=== PATIENT | female | born 1940 | race Two or more races ===

== ENCOUNTER 2020-04-06 11:21 | Outpatient (CLI) | payer MEDICARE | END 2020-04-06 23:59 | disposition home or self-care (01) | LOC: CT 11:21 | PROVIDERS: ATTEND Internal Medicine | DX: R41.3 Other amnesia (principal) | CPT/HCPCS: 70450-TC ==

== ENCOUNTER 2020-05-05 01:50 | Outpatient (CLI) | payer MEDICARE | END 2020-05-05 23:59 | disposition home or self-care (01) | LOC: MSC 01:50 | PROVIDERS: ATTEND Internal Medicine | DX: R05 Cough (principal); I10 Essential (primary) hypertension; R41.89 Other symptoms and signs involving cognitive functions and awareness; H91.90 Unspecified hearing loss, unspecified ear; R53.83 Other fatigue; R26.9 Unspecified abnormalities of gait and mobility | CPT/HCPCS: 71045; G0463 ==

== ENCOUNTER 2020-06-02 13:15 | Outpatient (CLI) | payer MEDICARE ==
[2020-06-02 16:23] LABS: CALCIUM, SERUM 8.8 mg/dL (8.5-10.1); CARBON DIOXIDE 28 mmol/L (21-32); CHLORIDE 100 mmol/L (98-107); CREATININE 0.8 mg/dL (0.6-1.3); GLUCOSE 147 mg/dL (74-106); POTASSIUM 4.5 mmol/L (3.5-5.1); SODIUM SERUM 136 mmol/L (136-145); UREA NITROGEN, BLOOD 10 mg/dL (7-18)
[2020-06-02 16:24] LABS: ALANINE AMINOTRANSFERASE 19 U/L (12-78); ALBUMIN 3.7 g/dL (3.4-5.0); ALKALINE PHOSPHATASE 78 U/L (46-116); ASPARTATE AMINOTRANSFERASE 16 U/L (15-37); BILIRUBIN,TOTAL 0.6 mg/dL (0.2-1.0); TOTAL PROTEIN, SERUM 7.7 g/dL (6.4-8.2)
== END 2020-06-02 23:59 | disposition home or self-care (01) ==
LOC: MSC 13:15
PROVIDERS: ATTEND Internal Medicine
DX: R05 Cough (principal); F41.9 Anxiety disorder, unspecified; I10 Essential (primary) hypertension; R41.89 Other symptoms and signs involving cognitive functions and awareness; H91.90 Unspecified hearing loss, unspecified ear; R53.83 Other fatigue; R26.9 Unspecified abnormalities of gait and mobility
CPT/HCPCS: 36415; 80053; G0463

== ENCOUNTER 2020-10-27 13:46 | Outpatient (CLI) | payer MEDICARE | END 2020-10-27 23:59 | disposition home or self-care (01) | LOC: MSC 13:46 | PROVIDERS: ATTEND Internal Medicine | DX: R05 Cough (principal); R41.89 Other symptoms and signs involving cognitive functions and awareness; F41.9 Anxiety disorder, unspecified; I10 Essential (primary) hypertension; H91.90 Unspecified hearing loss, unspecified ear; R53.83 Other fatigue; R26.9 Unspecified abnormalities of gait and mobility; Z79.899 Other long term (current) drug therapy | CPT/HCPCS: 71046; G0463 ==

== ENCOUNTER 2020-11-10 11:18 | Outpatient (CLI) | payer MEDICARE ==
[2020-11-10 13:40] LABS: CHOLESTEROL 261 mg/dL (<200); HDL CHOLESTEROL 113 mg/dL (40-60); LDL 138 mg/dL (0-99); TRIGLYCERIDES 40 mg/dL (30-150)
== END 2020-11-10 23:59 | disposition home or self-care (01) ==
LOC: LAB 11:18
PROVIDERS: ATTEND Internal Medicine Interventional Cardiology
DX: I10 Essential (primary) hypertension (principal)
CPT/HCPCS: 36415; 80061-TC

== ENCOUNTER 2020-11-10 15:31 | Outpatient (CLI) | payer MEDICARE | END 2020-11-10 23:59 | disposition home or self-care (01) | LOC: MSC 15:31 | PROVIDERS: ATTEND Internal Medicine | DX: R05 Cough (principal); R41.89 Other symptoms and signs involving cognitive functions and awareness; F41.9 Anxiety disorder, unspecified; Z79.899 Other long term (current) drug therapy; H91.90 Unspecified hearing loss, unspecified ear; R26.9 Unspecified abnormalities of gait and mobility; R53.83 Other fatigue; I10 Essential (primary) hypertension; Z90.49 Acquired absence of other specified parts of digestive tract; Z74.09 Other reduced mobility ==

== ENCOUNTER 2020-11-29 10:47 | Emergency (ER) | payer MEDICARE ==
[~2020-11-29] VITALS: Ht 160 cm; Wt 63.5 kg
--- NOTE | 2020-11-29 11:00 | NUR ---
R LOWER EXTREMITY SWELLING SINCE LAST NIGHT. PATIENT IN BED, KEPT COMFORTABLE.
[2020-11-29] MEDS ORDERED: MIRT15TA7 PO (11:23)
[2020-11-29] MEDS ORDERED: ATOR10TA PO (11:23)
[2020-11-29] MEDS ORDERED: VALS160T29 PO (11:23)
[2020-11-29] MEDS ORDERED: ASPI-1420 PO (11:23)
[2020-11-29] MEDS ORDERED: CITA10TA9 PO (11:23)
[2020-11-29] MEDS ORDERED: MONT10TA22 PO (11:23)
[2020-11-29] MEDS ORDERED: PANT40TA49 PO (11:23)
[2020-11-29 11:24] LABS: BASOPHILS # (AUTO) 0.1 /CMM (0.0-0.2); BASOPHILS % (AUTO) 1.3 % (0.0-2.0); EOSINOPHILS % (AUTO) 5.5 % (0.0-6.0); HEMATOCRIT 35 % (33-45); HEMOGLOBIN 12.1 g/dL (11.5-14.8); LYMPHOCYTES # (AUTO) 1.5 /CMM (0.8-4.8); LYMPHOCYTES % (AUTO) 30.3 % (20.0-44.0); MEAN CORPUSCULAR HGB CONC 35 g/dl (31.0-36.0); MEAN CORPUSCULAR VOLUME 101 fL (82-100); MONOCYTES # (AUTO) 0.4 /CMM (0.1-1.30); MONOCYTES % (AUTO) 8.2 % (2.0-12.0); NEUTROPHILS # (AUTO) 2.7 /CMM (1.8-8.9); NEUTROPHILS % (AUTO) 54.7 % (43.0-81.0); PLATELET COUNT (AUTO) 199 /CMM (150-450); RED BLOOD CELL COUNT(AUTO) 3.44 MIL/uL (4.0-5.2); WHITE BLOOD COUNT (AUTO) 4.9 K/uL (4.3-11.0)
[2020-11-29 12:05] LABS: CALCIUM, SERUM 8.6 mg/dL (8.5-10.1); POTASSIUM 4.3 mmol/L (3.5-5.1)
[2020-11-29 13:14] VITALS: BP 155/75
--- NOTE | 2020-11-29 13:14 | NUR ---
Patient in bed, resting, no distress noted. Patient discharged to home in stable condition. Written and verbal after care instructions given to daughter and verbalizes understanding of instruction.
== END 2020-11-29 13:15 | disposition home or self-care (01) ==
LOC: ER 10:47
DX: I82.812 Embolism and thrombosis of superficial veins of left lower extremity (principal); R22.41 Localized swelling, mass and lump, right lower limb; I10 Essential (primary) hypertension; F41.9 Anxiety disorder, unspecified; Z88.0 Allergy status to penicillin; Z79.899 Other long term (current) drug therapy; Z79.82 Long term (current) use of aspirin; M79.661 Pain in right lower leg
CPT/HCPCS: 36415; 80048-TC; 85025-TC; 85730-TC; 93970-TC

== ENCOUNTER 2020-12-15 14:00 | Outpatient (CLI) | payer MEDICARE ==
[~2020-12-15 14:00] MED LIST: ASPI-1420 PO; ATOR10TA PO; CITA10TA9 PO; MIRT15TA7 PO; MONT10TA22 PO; PANT40TA49 PO; VALS160T29 PO
== END 2020-12-15 23:59 | disposition home or self-care (01) ==
LOC: MSC 14:00
PROVIDERS: ATTEND Internal Medicine
DX: R41.89 Other symptoms and signs involving cognitive functions and awareness (principal); R05 Cough; F41.9 Anxiety disorder, unspecified; R53.83 Other fatigue; I10 Essential (primary) hypertension; H91.90 Unspecified hearing loss, unspecified ear; R26.9 Unspecified abnormalities of gait and mobility; Z88.8 Allergy status to other drugs, medicaments and biological substances; Z79.899 Other long term (current) drug therapy

== ENCOUNTER → 2020-12-20 | Outpatient (CLI) | payer MEDICARE | END | disposition home or self-care (01) | LOC: CT 11:09 | PROVIDERS: ATTEND Internal Medicine | DX: R05 Cough (principal) | CPT/HCPCS: 71250-TC ==

== ENCOUNTER 2020-12-29 10:24 | Outpatient (CLI) | payer MEDICARE | END 2020-12-29 23:59 | disposition home or self-care (01) | LOC: RAD 10:24 | PROVIDERS: ATTEND Internal Medicine Pulmonary Disease | DX: J32.9 Chronic sinusitis, unspecified (principal) | CPT/HCPCS: 70220-TC ==

== ENCOUNTER 2021-01-04 12:00 | Outpatient (CLI) | payer MEDICARE | END 2021-01-04 23:59 | disposition home or self-care (01) | LOC: MSC 12:00 | PROVIDERS: ATTEND Internal Medicine | DX: R42 Dizziness and giddiness (principal); R41.89 Other symptoms and signs involving cognitive functions and awareness; R05 Cough; F41.9 Anxiety disorder, unspecified; I10 Essential (primary) hypertension; H91.90 Unspecified hearing loss, unspecified ear; R53.83 Other fatigue; R26.9 Unspecified abnormalities of gait and mobility; Z79.899 Other long term (current) drug therapy ==

== ENCOUNTER 2021-01-25 03:30 | Outpatient (CLI) | payer MEDICARE | END 2021-01-25 23:59 | disposition home or self-care (01) | LOC: MSC 03:30 | PROVIDERS: ATTEND Internal Medicine | DX: I95.9 Hypotension, unspecified (principal); R19.7 Diarrhea, unspecified; R39.15 Urgency of urination; R41.89 Other symptoms and signs involving cognitive functions and awareness; R05 Cough; I10 Essential (primary) hypertension; H91.90 Unspecified hearing loss, unspecified ear; R53.83 Other fatigue; R26.9 Unspecified abnormalities of gait and mobility; Z79.899 Other long term (current) drug therapy ==

== ENCOUNTER 2021-01-26 10:57 | Outpatient (CLI) | payer MEDICARE ==
[2021-01-26 12:15] LABS: BILIRUBIN,URINE NEGATIVE (NEGATIVE); COLOR,URINE YELLOW (YELLOW); LEUKOCYTE ESTERASE ,URINE NEGATIVE (NEGATIVE); NITRITE, URINE NEGATIVE (NEGATIVE); PROTEIN,URINE NEGATIVE (NEGATIVE); UGLUCOSE NEGATIVE (NEGATIVE); UROBILINOGEN,URINE 0.2 EU/dL (0.2)
[2021-01-26 12:16] LABS: BASOPHILS % (AUTO) 0.4 % (0.0-2.0); EOSINOPHILS % (AUTO) 3.7 % (0.0-6.0); HEMATOCRIT 37 % (33-45); HEMOGLOBIN 12.5 g/dL (11.5-14.8); LYMPHOCYTES % (AUTO) 16.5 % (20.0-44.0); MEAN CORPUSCULAR HGB CONC 34 g/dl (31.0-36.0); MEAN CORPUSCULAR VOLUME 103 fL (82-100); MONOCYTES # (AUTO) 0.5 /CMM (0.1-1.30); MONOCYTES % (AUTO) 8.3 % (2.0-12.0); NEUTROPHILS # (AUTO) 4.5 /CMM (1.8-8.9); NEUTROPHILS % (AUTO) 71.1 % (43.0-81.0); PLATELET COUNT (AUTO) 234 /CMM (150-450); RED BLOOD CELL COUNT(AUTO) 3.56 MIL/uL (4.0-5.2); WHITE BLOOD COUNT (AUTO) 6.3 K/uL (4.3-11.0)
[2021-01-26 12:24] LABS: CREATININE, URINE 119.8 MG/DL (30.0-125.0); URINE TOTAL PROTEIN 17.6 mg/dL (0-11.9)
[2021-01-26 12:26] LABS: C-REACTIVE PROTEIN < 0.2 mg/dL (0.0-0.9)
[2021-01-26 12:27] LABS: BACTERIA,URINE Rare /HPF (None Seen); SQUAMOUS EPITHELIAL CELL,UR Rare /HPF (None Seen); WBC,URINE 0-2 /HPF (0-3)
[2021-01-26 12:30] LABS: ALANINE AMINOTRANSFERASE 26 U/L (12-78); ALBUMIN 3.6 g/dL (3.4-5.0); ALKALINE PHOSPHATASE 76 U/L (46-116); ASPARTATE AMINOTRANSFERASE 15 U/L (15-37); BILIRUBIN,TOTAL 0.7 mg/dL (0.2-1.0); CARBON DIOXIDE 28 mmol/L (21-32); CHLORIDE 101 mmol/L (98-107); CREATININE 0.9 mg/dL (0.6-1.3); GLUCOSE 108 mg/dL (74-106); MAGNESIUM 2.2 mg/dL (1.8-2.4); PHOSPHORUS 3.9 mg/dL (2.5-4.9); POTASSIUM 4.4 mmol/L (3.5-5.1); SODIUM SERUM 136 mmol/L (136-145); TOTAL PROTEIN, SERUM 7.8 g/dL (6.4-8.2); UREA NITROGEN, BLOOD 14 mg/dL (7-18)
== END 2021-01-26 23:59 | disposition home or self-care (01) ==
LOC: LAB 10:57
PROVIDERS: ATTEND Internal Medicine
DX: I95.9 Hypotension, unspecified (principal); R53.83 Other fatigue; R30.0 Dysuria; R19.7 Diarrhea, unspecified; R42 Dizziness and giddiness
CPT/HCPCS: 36415; 80053-TC; 81001; 82570-TC; 83735-TC; 84100-TC; 84155-TC; 85025-TC; 85652-TC; 86140-TC; 87086-TC

== ENCOUNTER 2021-02-01 09:54 | Outpatient (CLI) | payer MEDICARE, OTHER ==
[~2021-02-01 09:54] MED LIST changes: -MIRT-90 PO; +MIRT15TA7 PO
== END 2021-02-01 23:59 | disposition home or self-care (01) ==
LOC: US 09:54
PROVIDERS: ATTEND Internal Medicine
DX: N32.89 Other specified disorders of bladder (principal); R14.0 Abdominal distension (gaseous)
CPT/HCPCS: 76770-TC

== ENCOUNTER → 2021-02-01 | Outpatient (CLI) | payer MEDICARE ==
[~2021-02-01] MED LIST changes: +MIRT-90 PO; -MIRT15TA7 PO
== END | disposition home or self-care (01) ==
LOC: MSC 14:00
PROVIDERS: ATTEND Internal Medicine
DX: I95.9 Hypotension, unspecified (principal); R19.7 Diarrhea, unspecified; R39.15 Urgency of urination; R30.0 Dysuria; R42 Dizziness and giddiness; R41.89 Other symptoms and signs involving cognitive functions and awareness; R05 Cough; F41.9 Anxiety disorder, unspecified; I10 Essential (primary) hypertension; H91.90 Unspecified hearing loss, unspecified ear; R53.83 Other fatigue; R26.9 Unspecified abnormalities of gait and mobility

== ENCOUNTER 2021-03-08 11:14 | Outpatient (CLI) | payer MEDICARE ==
[~2021-03-08 11:14] MED LIST changes: +MIRT-90 PO; -MIRT15TA7 PO
[2021-03-08 13:00] LABS: BASOPHILS % (AUTO) 0.5 % (0.0-2.0); EOSINOPHILS % (AUTO) 4.7 % (0.0-6.0); HEMATOCRIT 35 % (33-45); HEMOGLOBIN 12.2 g/dL (11.5-14.8); LYMPHOCYTES # (AUTO) 1.6 K/uL (0.8-4.8); LYMPHOCYTES % (AUTO) 27.5 % (20.0-44.0); MEAN CORPUSCULAR HGB CONC 35 g/dl (31.0-36.0); MEAN CORPUSCULAR VOLUME 102 fL (82-100); MONOCYTES # (AUTO) 0.5 K/uL (0.1-1.30); MONOCYTES % (AUTO) 8.2 % (2.0-12.0); NEUTROPHILS # (AUTO) 3.4 K/uL (1.8-8.9); NEUTROPHILS % (AUTO) 59.1 % (43.0-81.0); PLATELET COUNT (AUTO) 229 K/uL (150-450); RED BLOOD CELL COUNT(AUTO) 3.42 MIL/uL (4.0-5.2); WHITE BLOOD COUNT (AUTO) 5.7 K/uL (4.3-11.0)
[2021-03-08 13:09] LABS: BILIRUBIN,URINE NEGATIVE (NEGATIVE); COLOR,URINE YELLOW (YELLOW); LEUKOCYTE ESTERASE ,URINE NEGATIVE (NEGATIVE); NITRITE, URINE NEGATIVE (NEGATIVE); PH,URINE 7.5 (5.0-8.0); PROTEIN,URINE NEGATIVE (NEGATIVE); UGLUCOSE NEGATIVE (NEGATIVE); UROBILINOGEN,URINE 0.2 EU/dL (0.2)
[2021-03-08 13:43] LABS: CHOLESTEROL 165 mg/dL (<200); FREE T4 (FREE THYROXINE) 1.17 ng/dL (0.76-1.46); HDL CHOLESTEROL 76 mg/dL (40-60); LDL 75 mg/dL (0-99); THYROID STIMULATING HORMONE 1.037 uIU/mL (0.358-3.74); TRIGLYCERIDES 55 mg/dL (30-150)
[2021-03-08 13:56] LABS: C-REACTIVE PROTEIN < 0.2 mg/dL (0.0-0.9)
[2021-03-08 14:39] LABS: ALANINE AMINOTRANSFERASE 22 U/L (12-78); ALBUMIN 3.6 g/dL (3.4-5.0); ASPARTATE AMINOTRANSFERASE 16 U/L (15-37); BILIRUBIN,TOTAL 0.7 mg/dL (0.2-1.0); CALCIUM, SERUM 8.9 mg/dL (8.5-10.1); CARBON DIOXIDE 31 mmol/L (21-32); CHLORIDE 98 mmol/L (98-107); CREATININE 0.9 mg/dL (0.6-1.3); GLUCOSE 99 mg/dL (74-106); MAGNESIUM 2.3 mg/dL (1.8-2.4); POTASSIUM 4.9 mmol/L (3.5-5.1); SODIUM SERUM 133 mmol/L (136-145); TOTAL PROTEIN, SERUM 7.8 g/dL (6.4-8.2); UREA NITROGEN, BLOOD 10 mg/dL (7-18)
[2021-03-08 17:59] LABS: ALKALINE PHOSPHATASE 59 U/L (46-116)
== END 2021-03-08 23:59 | disposition home or self-care (01) ==
LOC: MSC 11:14
PROVIDERS: ATTEND Internal Medicine
DX: L98.9 Disorder of the skin and subcutaneous tissue, unspecified (principal); I95.9 Hypotension, unspecified; R19.7 Diarrhea, unspecified; R39.15 Urgency of urination; R30.0 Dysuria; R42 Dizziness and giddiness; R41.89 Other symptoms and signs involving cognitive functions and awareness; R05 Cough; F41.9 Anxiety disorder, unspecified; I10 Essential (primary) hypertension; H91.90 Unspecified hearing loss, unspecified ear; R53.83 Other fatigue; R26.9 Unspecified abnormalities of gait and mobility
CPT/HCPCS: 36415; 80053; 80061; 81003; 82306; 82607; 82746; 83036; 83735; 84100; 84439; 84443; 85025; 85652; 86003; 86140; G0463

== ENCOUNTER → 2021-04-03 | Outpatient (CLI) | payer MEDICARE, OTHER | END | disposition home or self-care (01) | LOC: MSC 15:00 | PROVIDERS: ATTEND Internal Medicine | DX: G47.00 Insomnia, unspecified (principal); R41.89 Other symptoms and signs involving cognitive functions and awareness; F41.9 Anxiety disorder, unspecified; J30.9 Allergic rhinitis, unspecified; R09.82 Postnasal drip; I95.9 Hypotension, unspecified; R19.7 Diarrhea, unspecified; R39.15 Urgency of urination; R30.0 Dysuria; R42 Dizziness and giddiness; I10 Essential (primary) hypertension; H91.90 Unspecified hearing loss, unspecified ear; R26.9 Unspecified abnormalities of gait and mobility; Z91.018 Allergy to other foods; Z79.82 Long term (current) use of aspirin; Z79.899 Other long term (current) drug therapy ==

== ENCOUNTER 2021-04-11 11:23 | Outpatient (CLI) | payer MEDICARE ==
[2021-04-11 12:02] LABS: BILIRUBIN,URINE NEGATIVE (NEGATIVE); LEUKOCYTE ESTERASE ,URINE MODERATE (NEGATIVE); NITRITE, URINE NEGATIVE (NEGATIVE); PH,URINE 7.5 (5.0-8.0); PROTEIN,URINE NEGATIVE (NEGATIVE); UGLUCOSE NEGATIVE (NEGATIVE); UROBILINOGEN,URINE 0.2 EU/dL (0.2)
[2021-04-11 12:05] LABS: COLOR,URINE STRAW (YELLOW)
[2021-04-11 12:13] LABS: BACTERIA,URINE 3+ /HPF (None Seen); SQUAMOUS EPITHELIAL CELL,UR Few /HPF (None Seen); WBC,URINE TOO NUMEROUS TO COUN /HPF (0-3)
== END 2021-04-11 23:59 | disposition home or self-care (01) ==
LOC: LAB 11:23
PROVIDERS: ATTEND Internal Medicine
DX: N39.0 Urinary tract infection, site not specified (principal)
CPT/HCPCS: 81001; 87086-TC

== ENCOUNTER → 2021-04-11 | Outpatient (CLI) | payer MEDICARE | END | disposition home or self-care (01) | LOC: MSC 14:15 | PROVIDERS: ATTEND Internal Medicine | DX: N39.0 Urinary tract infection, site not specified (principal); R39.15 Urgency of urination; R30.0 Dysuria; G47.00 Insomnia, unspecified; J30.9 Allergic rhinitis, unspecified; R09.82 Postnasal drip; I95.9 Hypotension, unspecified; R19.7 Diarrhea, unspecified; R42 Dizziness and giddiness; R53.83 Other fatigue; R41.89 Other symptoms and signs involving cognitive functions and awareness; F41.9 Anxiety disorder, unspecified; I10 Essential (primary) hypertension; H91.90 Unspecified hearing loss, unspecified ear; R26.9 Unspecified abnormalities of gait and mobility; Z79.899 Other long term (current) drug therapy ==

== ENCOUNTER → 2021-05-22 | Outpatient (CLI) | payer MEDICARE | END | disposition home or self-care (01) | LOC: MSC 09:15 | PROVIDERS: ATTEND Internal Medicine | DX: R41.89 Other symptoms and signs involving cognitive functions and awareness (principal); R26.9 Unspecified abnormalities of gait and mobility; N39.0 Urinary tract infection, site not specified; G47.00 Insomnia, unspecified; J30.9 Allergic rhinitis, unspecified; R09.82 Postnasal drip; I95.9 Hypotension, unspecified; R19.7 Diarrhea, unspecified; R30.0 Dysuria; R39.15 Urgency of urination; R42 Dizziness and giddiness; R53.83 Other fatigue; F41.9 Anxiety disorder, unspecified; I10 Essential (primary) hypertension; H91.90 Unspecified hearing loss, unspecified ear; Z79.899 Other long term (current) drug therapy ==

== ENCOUNTER → 2021-05-23 | Outpatient (CLI) | payer MEDICARE | END | disposition home or self-care (01) | LOC: MSC 14:30 | PROVIDERS: ATTEND Internal Medicine | DX: R41.89 Other symptoms and signs involving cognitive functions and awareness (principal); G47.00 Insomnia, unspecified; J30.9 Allergic rhinitis, unspecified; R09.82 Postnasal drip; I95.9 Hypotension, unspecified; R19.7 Diarrhea, unspecified; R39.15 Urgency of urination; R30.0 Dysuria; R42 Dizziness and giddiness; R53.83 Other fatigue; F41.9 Anxiety disorder, unspecified; I10 Essential (primary) hypertension; H91.90 Unspecified hearing loss, unspecified ear; R26.9 Unspecified abnormalities of gait and mobility; Z79.899 Other long term (current) drug therapy ==

== ENCOUNTER 2021-05-25 10:59 | Outpatient (CLI) | payer MEDICARE | END 2021-05-25 23:59 | disposition home or self-care (01) | LOC: CT 10:59 | PROVIDERS: ATTEND Internal Medicine | DX: I67.82 Cerebral ischemia (principal); I65.23 Occlusion and stenosis of bilateral carotid arteries | CPT/HCPCS: 70450-TC ==

== ENCOUNTER 2021-05-31 10:58 | Outpatient (CLI) | payer MEDICARE ==
[2021-05-31 12:13] LABS: BASOPHILS % (AUTO) 0.6 % (0.0-2.0); EOSINOPHILS % (AUTO) 2.3 % (0.0-6.0); HEMATOCRIT 35 % (33-45); HEMOGLOBIN 11.9 g/dL (11.5-14.8); LYMPHOCYTES # (AUTO) 1.1 K/uL (0.8-4.8); MEAN CORPUSCULAR HGB CONC 34 g/dl (31.0-36.0); MEAN CORPUSCULAR VOLUME 104 fL (82-100); MONOCYTES # (AUTO) 0.4 K/uL (0.1-1.30); MONOCYTES % (AUTO) 6.7 % (2.0-12.0); NEUTROPHILS % (AUTO) 70.4 % (43.0-81.0); PLATELET COUNT (AUTO) 272 K/uL (150-450); RED BLOOD CELL COUNT(AUTO) 3.38 MIL/uL (4.0-5.2); WHITE BLOOD COUNT (AUTO) 5.7 K/uL (4.3-11.0)
[2021-05-31 13:33] LABS: ALBUMIN 3.6 g/dL (3.4-5.0); BILIRUBIN,TOTAL 0.5 mg/dL (0.2-1.0); CALCIUM, SERUM 8.7 mg/dL (8.5-10.1); CREATININE 0.8 mg/dL (0.6-1.3); MAGNESIUM 2.5 mg/dL (1.8-2.4); PHOSPHORUS 4.1 mg/dL (2.5-4.9); POTASSIUM 4.8 mmol/L (3.5-5.1); TOTAL PROTEIN, SERUM 7.7 g/dL (6.4-8.2)
== END 2021-05-31 23:59 | disposition home or self-care (01) ==
LOC: MSC 10:58
PROVIDERS: ATTEND Internal Medicine
DX: R41.89 Other symptoms and signs involving cognitive functions and awareness (principal); R09.3 Abnormal sputum; R05.9 Cough, unspecified; E87.5 Hyperkalemia; G47.00 Insomnia, unspecified; J30.9 Allergic rhinitis, unspecified; I95.9 Hypotension, unspecified; R19.7 Diarrhea, unspecified; R39.15 Urgency of urination; R30.0 Dysuria; R42 Dizziness and giddiness; R53.83 Other fatigue; F41.9 Anxiety disorder, unspecified; I10 Essential (primary) hypertension; H91.90 Unspecified hearing loss, unspecified ear; R26.9 Unspecified abnormalities of gait and mobility; Z79.899 Other long term (current) drug therapy
CPT/HCPCS: 36415; 71045; 80053; 80061; 82607; 83036; 83735; 84100; 85025; G0463

== ENCOUNTER → 2021-06-05 | Outpatient (CLI) | payer MEDICARE | END | disposition home or self-care (01) | LOC: MSC 14:00 | PROVIDERS: ATTEND Internal Medicine | DX: E87.1 Hypo-osmolality and hyponatremia (principal); E78.5 Hyperlipidemia, unspecified; R41.89 Other symptoms and signs involving cognitive functions and awareness; J30.9 Allergic rhinitis, unspecified; R09.82 Postnasal drip; G47.00 Insomnia, unspecified; I95.9 Hypotension, unspecified; R19.7 Diarrhea, unspecified; R39.15 Urgency of urination; R30.0 Dysuria; R42 Dizziness and giddiness; R53.83 Other fatigue; F41.9 Anxiety disorder, unspecified; I10 Essential (primary) hypertension; H91.90 Unspecified hearing loss, unspecified ear; R26.9 Unspecified abnormalities of gait and mobility; Z79.899 Other long term (current) drug therapy ==

== ENCOUNTER 2021-07-10 10:01 | Outpatient (CLI) | payer MEDICARE | END 2021-07-10 23:59 | disposition home or self-care (01) | LOC: MSC 10:01 | PROVIDERS: ATTEND Internal Medicine | DX: K59.00 Constipation, unspecified (principal); R19.7 Diarrhea, unspecified; I10 Essential (primary) hypertension; E87.1 Hypo-osmolality and hyponatremia; E78.5 Hyperlipidemia, unspecified; R41.89 Other symptoms and signs involving cognitive functions and awareness; J30.9 Allergic rhinitis, unspecified; R09.82 Postnasal drip; Z87.440 Personal history of urinary (tract) infections; G47.00 Insomnia, unspecified; R39.15 Urgency of urination; R30.0 Dysuria; R42 Dizziness and giddiness; R53.83 Other fatigue; H91.90 Unspecified hearing loss, unspecified ear; R26.9 Unspecified abnormalities of gait and mobility; Z79.899 Other long term (current) drug therapy; F41.8 Other specified anxiety disorders ==

== ENCOUNTER → 2021-08-03 | Outpatient (CLI) | payer MEDICARE | END | disposition home or self-care (01) | LOC: MSC 14:00 | PROVIDERS: ATTEND Internal Medicine | DX: I10 Essential (primary) hypertension (principal); R41.0 Disorientation, unspecified; R19.7 Diarrhea, unspecified; E87.1 Hypo-osmolality and hyponatremia; E78.5 Hyperlipidemia, unspecified; R41.89 Other symptoms and signs involving cognitive functions and awareness; E87.5 Hyperkalemia; J30.9 Allergic rhinitis, unspecified; Z87.440 Personal history of urinary (tract) infections; G47.00 Insomnia, unspecified; R39.15 Urgency of urination; R42 Dizziness and giddiness; F41.9 Anxiety disorder, unspecified; H91.90 Unspecified hearing loss, unspecified ear; R53.83 Other fatigue; R26.9 Unspecified abnormalities of gait and mobility; Z79.82 Long term (current) use of aspirin; Z79.899 Other long term (current) drug therapy ==

== ENCOUNTER 2021-08-09 10:00 | Outpatient (CLI) | payer MEDICARE | END 2021-08-09 23:59 | disposition home or self-care (01) | LOC: MSC 10:00 | PROVIDERS: ATTEND Internal Medicine | DX: I10 Essential (primary) hypertension (principal); F41.9 Anxiety disorder, unspecified; R19.7 Diarrhea, unspecified; E78.5 Hyperlipidemia, unspecified; R41.89 Other symptoms and signs involving cognitive functions and awareness; E87.5 Hyperkalemia; J30.9 Allergic rhinitis, unspecified; Z87.440 Personal history of urinary (tract) infections; G47.00 Insomnia, unspecified; R39.15 Urgency of urination; R42 Dizziness and giddiness; H91.90 Unspecified hearing loss, unspecified ear; R53.83 Other fatigue; R26.9 Unspecified abnormalities of gait and mobility; Z79.82 Long term (current) use of aspirin; Z79.899 Other long term (current) drug therapy ==

== ENCOUNTER 2021-09-12 14:00 | Outpatient (CLI) | payer MEDICARE | END 2021-09-12 23:59 | disposition home or self-care (01) | LOC: MSC 14:00 | PROVIDERS: ATTEND Internal Medicine | DX: I95.9 Hypotension, unspecified (principal); I10 Essential (primary) hypertension; E78.5 Hyperlipidemia, unspecified; R41.89 Other symptoms and signs involving cognitive functions and awareness; E87.5 Hyperkalemia; J30.9 Allergic rhinitis, unspecified; Z87.440 Personal history of urinary (tract) infections; G47.00 Insomnia, unspecified; R39.15 Urgency of urination; R42 Dizziness and giddiness; F41.9 Anxiety disorder, unspecified; H91.90 Unspecified hearing loss, unspecified ear; R53.83 Other fatigue; R26.9 Unspecified abnormalities of gait and mobility; Z79.82 Long term (current) use of aspirin; Z79.899 Other long term (current) drug therapy ==

== ENCOUNTER 2021-09-20 11:00 | Outpatient (CLI) | payer MEDICARE | END 2021-09-20 23:59 | disposition home or self-care (01) | LOC: MSC 11:00 | PROVIDERS: ATTEND Internal Medicine | DX: I10 Essential (primary) hypertension (principal); R21 Rash and other nonspecific skin eruption; H93.19 Tinnitus, unspecified ear; E78.5 Hyperlipidemia, unspecified; R41.89 Other symptoms and signs involving cognitive functions and awareness; G47.00 Insomnia, unspecified; R19.7 Diarrhea, unspecified; R39.15 Urgency of urination; R42 Dizziness and giddiness; F41.9 Anxiety disorder, unspecified; H91.90 Unspecified hearing loss, unspecified ear; R53.83 Other fatigue; R26.9 Unspecified abnormalities of gait and mobility; Z79.899 Other long term (current) drug therapy ==

== ENCOUNTER 2021-09-25 11:45 | Outpatient (CLI) | payer MEDICARE | END 2021-09-25 23:59 | disposition home or self-care (01) | LOC: MSC 11:45 | PROVIDERS: ATTEND Internal Medicine | DX: I10 Essential (primary) hypertension (principal); H93.19 Tinnitus, unspecified ear; E78.5 Hyperlipidemia, unspecified; R41.89 Other symptoms and signs involving cognitive functions and awareness; G47.00 Insomnia, unspecified; R19.7 Diarrhea, unspecified; R39.15 Urgency of urination; R42 Dizziness and giddiness; F41.9 Anxiety disorder, unspecified; H91.90 Unspecified hearing loss, unspecified ear; R53.83 Other fatigue; R26.9 Unspecified abnormalities of gait and mobility; Z79.899 Other long term (current) drug therapy ==

== ENCOUNTER → 2021-11-02 | Outpatient (CLI) | payer MEDICARE | END | disposition home or self-care (01) | LOC: MSC 13:00 | PROVIDERS: ATTEND Internal Medicine | DX: R41.89 Other symptoms and signs involving cognitive functions and awareness (principal); I10 Essential (primary) hypertension; H93.19 Tinnitus, unspecified ear; E78.5 Hyperlipidemia, unspecified; G47.00 Insomnia, unspecified; R19.7 Diarrhea, unspecified; R39.15 Urgency of urination; R42 Dizziness and giddiness; F41.9 Anxiety disorder, unspecified; H91.90 Unspecified hearing loss, unspecified ear; R53.83 Other fatigue; R26.9 Unspecified abnormalities of gait and mobility; Z79.899 Other long term (current) drug therapy ==

== ENCOUNTER → 2021-11-22 | Outpatient (CLI) | payer MEDICARE, OTHER | END | disposition home or self-care (01) | LOC: MSC 14:30 | PROVIDERS: ATTEND Internal Medicine | DX: K02.9 Dental caries, unspecified (principal); R41.89 Other symptoms and signs involving cognitive functions and awareness; I10 Essential (primary) hypertension; H93.19 Tinnitus, unspecified ear; E78.5 Hyperlipidemia, unspecified; G47.00 Insomnia, unspecified; R19.7 Diarrhea, unspecified; R39.15 Urgency of urination; R42 Dizziness and giddiness; F41.9 Anxiety disorder, unspecified; H91.90 Unspecified hearing loss, unspecified ear; R53.83 Other fatigue; R26.9 Unspecified abnormalities of gait and mobility; Z79.899 Other long term (current) drug therapy ==

== ENCOUNTER 2021-11-27 14:29 | Outpatient (CLI) | payer MEDICARE, OTHER ==
[2021-11-27 14:52] LABS: BASOPHILS % (AUTO) 0.5 % (0.0-2.0); EOSINOPHILS % (AUTO) 4.3 % (0.0-6.0); HEMATOCRIT 38 % (33-45); HEMOGLOBIN 12.8 g/dL (11.5-14.8); LYMPHOCYTES # (AUTO) 1.3 K/uL (0.8-4.8); LYMPHOCYTES % (AUTO) 27.8 % (20.0-44.0); MEAN CORPUSCULAR HGB CONC 34 g/dl (31.0-36.0); MEAN CORPUSCULAR VOLUME 100 fL (82-100); MONOCYTES # (AUTO) 0.3 K/uL (0.1-1.30); MONOCYTES % (AUTO) 5.9 % (2.0-12.0); NEUTROPHILS # (AUTO) 2.9 K/uL (1.8-8.9); NEUTROPHILS % (AUTO) 61.5 % (43.0-81.0); PLATELET COUNT (AUTO) 258 K/uL (150-450); RED BLOOD CELL COUNT(AUTO) 3.83 MIL/uL (4.0-5.2); WHITE BLOOD COUNT (AUTO) 4.8 K/uL (4.3-11.0)
[2021-11-27 15:15] LABS: ALANINE AMINOTRANSFERASE 14 U/L (12-78); ALBUMIN 3.7 g/dL (3.4-5.0); ALKALINE PHOSPHATASE 84 U/L (46-116); ASPARTATE AMINOTRANSFERASE 9 U/L (15-37); BILIRUBIN,TOTAL 0.6 mg/dL (0.2-1.0); CALCIUM, SERUM 8.9 mg/dL (8.5-10.1); CARBON DIOXIDE 28 mmol/L (21-32); CHLORIDE 96 mmol/L (98-107); CREATININE 0.8 mg/dL (0.6-1.3); GLUCOSE 193 mg/dL (74-106); MAGNESIUM 2.4 mg/dL (1.8-2.4); PHOSPHORUS 4.2 mg/dL (2.5-4.9); POTASSIUM 4.2 mmol/L (3.5-5.1); SODIUM SERUM 132 mmol/L (136-145); TOTAL PROTEIN, SERUM 7.8 g/dL (6.4-8.2); UREA NITROGEN, BLOOD 11 mg/dL (7-18)
[2021-11-27 15:20] LABS: BILIRUBIN,URINE NEGATIVE (NEGATIVE); COLOR,URINE YELLOW (YELLOW); LEUKOCYTE ESTERASE ,URINE NEGATIVE (NEGATIVE); NITRITE, URINE NEGATIVE (NEGATIVE); PH,URINE 7.5 (5.0-8.0); PROTEIN,URINE NEGATIVE (NEGATIVE); UGLUCOSE NEGATIVE (NEGATIVE); UROBILINOGEN,URINE 0.2 EU/dL (0.2)
== END 2021-11-27 23:59 | disposition home or self-care (01) ==
LOC: LAB 14:29
PROVIDERS: ATTEND Internal Medicine
DX: Z01.818 Encounter for other preprocedural examination (principal)
CPT/HCPCS: 36415; 71045-TC; 80053-TC; 83735-TC; 84100-TC; 85025-TC; 85730-TC

== ENCOUNTER → 2021-11-27 | Outpatient (CLI) | payer MEDICARE, OTHER | END | disposition home or self-care (01) | LOC: MSC 16:30 | PROVIDERS: ATTEND Internal Medicine | DX: Z01.818 Encounter for other preprocedural examination (principal); K02.9 Dental caries, unspecified; R41.89 Other symptoms and signs involving cognitive functions and awareness; I10 Essential (primary) hypertension; H93.19 Tinnitus, unspecified ear; E78.5 Hyperlipidemia, unspecified; G47.00 Insomnia, unspecified; R19.7 Diarrhea, unspecified; R39.15 Urgency of urination; R42 Dizziness and giddiness; F41.9 Anxiety disorder, unspecified; H91.90 Unspecified hearing loss, unspecified ear; R53.83 Other fatigue; R26.9 Unspecified abnormalities of gait and mobility; Z79.899 Other long term (current) drug therapy ==

== ENCOUNTER → 2022-01-11 | Outpatient (CLI) | payer MEDICARE, OTHER | END | disposition home or self-care (01) | LOC: MSC 13:15 | PROVIDERS: ATTEND Internal Medicine | DX: R60.0 Localized edema (principal); Z87.440 Personal history of urinary (tract) infections; R41.89 Other symptoms and signs involving cognitive functions and awareness; I10 Essential (primary) hypertension; H93.19 Tinnitus, unspecified ear; E78.5 Hyperlipidemia, unspecified; G47.00 Insomnia, unspecified; R19.7 Diarrhea, unspecified; R39.15 Urgency of urination; R42 Dizziness and giddiness; F41.9 Anxiety disorder, unspecified; H91.90 Unspecified hearing loss, unspecified ear; R53.83 Other fatigue; R26.9 Unspecified abnormalities of gait and mobility; Z79.899 Other long term (current) drug therapy ==

== ENCOUNTER → 2022-01-16 | Outpatient (CLI) | payer MEDICARE, OTHER ==
[~2022-01-16] MED LIST changes: +BIOT5000 PO; +CETI-90 PO; +CRAN1CAP6 PO; +DOXA2TAB2 PO; +LACT1TAB25 PO
== END | disposition home or self-care (01) ==
LOC: MSC 13:30
PROVIDERS: ATTEND Internal Medicine
DX: U07.1 COVID-19 (principal); R60.0 Localized edema; Z87.440 Personal history of urinary (tract) infections; R41.9 Unspecified symptoms and signs involving cognitive functions and awareness; I10 Essential (primary) hypertension; H93.19 Tinnitus, unspecified ear; E78.5 Hyperlipidemia, unspecified; G47.00 Insomnia, unspecified; R19.7 Diarrhea, unspecified; R39.15 Urgency of urination; R42 Dizziness and giddiness; F41.9 Anxiety disorder, unspecified; H91.90 Unspecified hearing loss, unspecified ear; R53.83 Other fatigue; R26.9 Unspecified abnormalities of gait and mobility

== ENCOUNTER → 2022-01-23 | Outpatient (CLI) | payer MEDICARE, OTHER ==
[~2022-01-23] MED LIST changes: +AMLO-212 PO
== END | disposition home or self-care (01) ==
LOC: MSC 15:00
PROVIDERS: ATTEND Internal Medicine
DX: U07.1 COVID-19 (principal); R60.0 Localized edema; Z87.440 Personal history of urinary (tract) infections; R41.9 Unspecified symptoms and signs involving cognitive functions and awareness; I10 Essential (primary) hypertension; H93.19 Tinnitus, unspecified ear; E78.5 Hyperlipidemia, unspecified; G47.00 Insomnia, unspecified; R19.7 Diarrhea, unspecified; R39.15 Urgency of urination; R42 Dizziness and giddiness; F41.9 Anxiety disorder, unspecified; H91.90 Unspecified hearing loss, unspecified ear; R53.83 Other fatigue; R26.9 Unspecified abnormalities of gait and mobility

== ENCOUNTER 2022-01-24 11:52 | Inpatient (IN) | payer MEDICARE, OTHER ==
[~2022-01-24] VITALS: Ht 154.9 cm; Wt 63.5 kg
[~2022-01-24 11:52] MED LIST changes: -AMLO-212 PO; -BIOT5000 PO; -CETI-90 PO; -CRAN1CAP6 PO; -DOXA2TAB2 PO; -LACT1TAB25 PO
--- NOTE | 2022-01-24 11:57 | NUR ---
TO ER BED 10, BIB FAMILY SENT BY FOR LOW SODIUM 100MEQ/L, AAOX1, BREATHING EVEN AND NON LABORED, CONNECTED TO MONITOR, CAREGIVER AT BEDSIDE
--- NOTE | 2022-01-24 12:24 | NUR ---
ROLLED SEAT TRIMMER AT BEDSIDE FOR BLOOD DRAW
[2022-01-24] MEDS ORDERED: IV NS 0.9% 500 ML BAG IV ONE (12:30)
--- NOTE | 2022-01-24 12:47 | NUR ---
COVID SWAB DONE AND SENT TO LAB
[2022-01-24 12:52] LABS: SERUM AMMONIA 25 umol/L (11-32)
[2022-01-24] MEDS ORDERED: CRAN1CAP6 PO (12:55)
[2022-01-24] MEDS ORDERED: DOXA2TAB2 PO (12:55)
[2022-01-24] MEDS ORDERED: LACT1TAB25 PO (12:55)
[2022-01-24] MEDS ORDERED: BIOT5000 PO (12:55)
[2022-01-24] MEDS ORDERED: CETI-90 PO (12:55)
[2022-01-24 12:56] LABS: ALANINE AMINOTRANSFERASE 71 U/L (12-78); ALBUMIN 3.6 g/dL (3.4-5.0); ALKALINE PHOSPHATASE 97 U/L (46-116); ASPARTATE AMINOTRANSFERASE 35 U/L (15-37); BILIRUBIN,DIRECT 0.1 mg/dL (0.0-0.2); BILIRUBIN,TOTAL 0.7 mg/dL (0.2-1.0); CALCIUM, SERUM 8.5 mg/dL (8.5-10.1); CARBON DIOXIDE 27 mmol/L (21-32); CHLORIDE 82 mmol/L (98-107); CREATININE 0.8 mg/dL (0.6-1.3); GLUCOSE 143 mg/dL (74-106); LIPASE 218 U/L (73-393); POTASSIUM 3.9 mmol/L (3.5-5.1); TOTAL PROTEIN, SERUM 7.3 g/dL (6.4-8.2); UREA NITROGEN, BLOOD 7 mg/dL (7-18)
[2022-01-24 13:02] LABS: SODIUM SERUM 113 mmol/L (136-145)
[2022-01-24 13:21] LABS: BASOPHILS % (AUTO) 0.7 % (0.0-2.0); EOSINOPHILS % (AUTO) 1.6 % (0.0-6.0); HEMATOCRIT 35 % (33-45); HEMOGLOBIN 13.2 g/dL (11.5-14.8); LYMPHOCYTES % (AUTO) 16.7 % (20.0-44.0); MEAN CORPUSCULAR HGB CONC 37 g/dl (31.0-36.0); MEAN CORPUSCULAR VOLUME 91 fL (82-100); MONOCYTES # (AUTO) 0.6 K/uL (0.1-1.30); MONOCYTES % (AUTO) 10.2 % (2.0-12.0); NEUTROPHILS # (AUTO) 4.3 K/uL (1.8-8.9); NEUTROPHILS % (AUTO) 70.8 % (43.0-81.0); PLATELET COUNT (AUTO) 292 K/uL (150-450); RED BLOOD CELL COUNT(AUTO) 3.89 MIL/uL (4.0-5.2)
--- NOTE | 2022-01-24 13:42 | NUR ---
CALLED DR. MOONEY.
--- NOTE | 2022-01-24 13:51 | NUR ---
DR. MOONEY SPEAKING WITH DR. RUIZ.
[2022-01-24] MEDS ORDERED: Z GUARD REMEDY 4 OZ OINT TP PRN (15:00)
[2022-01-24] MEDS ORDERED: MAG HYDROX/AL HYDROX/SIMETH 30 ML UDC PO PRN (15:00)
[2022-01-24] MEDS ORDERED: ONDANSETRON HCL/PF 4 MG/2 ML VIAL IVP PRN (15:00)
[2022-01-24] MEDS ORDERED: MAGNESIUM HYDROXIDE 30 ML UDC PO PRN (15:00)
[2022-01-24] MEDS ORDERED: ACETAMINOPHEN 325 MG TABLET PO PRN (15:00)
--- NOTE | 2022-01-24 15:15 | NUR ---
PATIENT TESTED COVID POSITIVE, CAREGIVER AWARE
--- NOTE | 2022-01-24 15:55 | NUR ---
GOT BED 101
--- NOTE | 2022-01-24 16:03 | NUR ---
PER NURSE RADHAMES EWING, BED WILL BE READY AT 1630
--- NOTE | 2022-01-24 16:38 | NUR ---
REPORT GIVEN TO SOON RN FOR [place], TRANSFER IN 20MINS, NURSE IS STILL BUSY WITH OTHER PATIENT
--- NOTE | 2022-01-24 17:00 | NUR ---
DIETARY AID NOTE RECEIVED PATIENT ALERT CONFUSED SPEAKS SOME WORDS [facility],ON ROOM AIR O2:96% BED BOUND,IV SITE IS ON LEFT WRIST INTACT PATENT,DIAGNOSIS IS HYPONATREMIA NA 113,SAFETY MEASURE IMPLEMENT,BED IN LOW POSITON AND LOCKED,CONTINUE TO MONITOR.
--- NOTE | 2022-01-24 17:02 | NUR ---
TRANSFERRED TO BED 101 IN STABLE CONDITION
--- NOTE | 2022-01-24 17:02 | NUR ---
RN NOTE PATIENT IS COVID POSITIVE VERY ANXIOUS,CONTINUE TO MONITOR.
--- NOTE | 2022-01-24 18:00 | NUR ---
RN NOTE PATIENT REMOVED IV LINE,CLEAN THE SITE CONTINUE TO MONITOR.
[2022-01-24] MEDS: ACIDOPHILUS/BULGARICUS 1 EACH TAB.CHEW PO SCH (18:12)
[2022-01-24] MEDS: ASPIRIN EC 81 MG TABLET.DR PO SCH (18:12)
[2022-01-24] MEDS: VALSARTAN 80 MG TABLET PO SCH (18:13)
[2022-01-24 20:00] VITALS: BP_SYST 156; BP_DIAS 76; BP_DIAS 79
--- NOTE | 2022-01-24 20:00 | NUR ---
RN NOTE STARTED A NEW IV LINE ON RIGHT WRIST #22 G INTACT WITH GOOD BLOOD RETURN,PATIENT REMAINS CONFUSED KEPT HEAD OF THE BED ELEVATED ENDORSE NEXT COMING SHIFT FOR CONTINUATION OF CARE.
[2022-01-24] MEDS: IV NS 0.9% 1,000 ML IV PRN (20:08)
--- NOTE | 2022-01-24 20:30 | NUR ---
RN OPENING NOTES RECEIVED CARE OF PATIENT WHILE PATIENT IN BED, AGITATED, CONFUSED, UNABLE TO FOLLOW COMMANDS. PATIENT NOTED WITH B SOFT WRIST RESTRAINTS, NO SKIN OR CIRCULATORY COMPROMISE NOTED, WILL CONTINUOUSLY REMOVE AND ASSESS SKIN AROUND RESTRAINTS. PATIENT ON ROOM AIR, BILATERAL CHEST RISE AND FALL, NO SOB NOTED, 02 SAT 99%. PATIENT WITH TELE MONITOR SHOWING SB WITH 1ST DEGREE AV BLOCK AND HR OF 65, NO DISTRESS NOTED ON PATIENT. WITH IV ACCESS ON R WRIST #22, PATENT, RUNNING WITH IV NS AT 75ML/HR. SAFETY MEASURES IN PLACE ACCORDING TO HOSPITAL PROTOCOLS. WILL CONTINUE TO MONITOR.
[2022-01-24] MEDS: MIRTAZAPINE 15 MG TABLET PO SCH (22:26)
[2022-01-24] MEDS: DOXAZOSIN MESYLATE (1 MG) 1 MG TABLET PO SCH (22:27)
[2022-01-25] VITALS: BP 147/80
[2022-01-25 04:00] VITALS: BP 157/66
--- NOTE | 2022-01-25 06:12 | NUR ---
RN CLOSING NOTES WILL ENDORSE CARE OF PATIENT TO AM NURSE. PATIENT REMAINS IN BED, ANXIOUS, CONFUSED. ALL PATIENT NEEDS ANTICIPATED AND MET THROUGHOUT SHIFT. ALL DUE MEDS GIVEN. NO SIGNIFICANT FINDINGS UPON ALL NURSING ASSESSMENTS. SAFETY MEASURES FOLLOWED AND IMPLEMENTED PER HOSPITAL PROTOCOLS. WILL ENDORSE TO AM NURSE FOR [place].
--- NOTE | 2022-01-25 07:00 | NUR ---
RN NOTE RECEIVED PATIENT IN BED RESTING ANXIOUS,CONFUSED COVID POSITIVE,ON ROOM AIR O2:96% IV SITE IS ON RIGHT WRIST ON IV HYDRATION NS 75CC/HR,SOFT BILATERAL WRIST RESTRAIN IN PLACE WILL CHECK EVERY 15 MINS FOR SKIN BREAK DOWN AND CIRCULATION,SAFETY MEASURE IMPLEMENT,BED IN LOW POSITION AND LOCKED,HEAD OF THE BED ELEVATED CONTINUE TO MONITOR.
[2022-01-25 07:14] LABS: ALBUMIN 3.3 g/dL (3.4-5.0); BILIRUBIN,TOTAL 0.8 mg/dL (0.2-1.0); CALCIUM, SERUM 8.1 mg/dL (8.5-10.1); CREATININE 0.7 mg/dL (0.6-1.3); POTASSIUM 3.6 mmol/L (3.5-5.1); TOTAL PROTEIN, SERUM 6.8 g/dL (6.4-8.2)
[2022-01-25] MEDS: IV NS 0.9% 1,000 ML IV PRN ×2 (07:17→20:33)
[2022-01-25 07:42] LABS: BASOPHILS % (AUTO) 0.4 % (0.0-2.0); EOSINOPHILS % (AUTO) 1.9 % (0.0-6.0); HEMATOCRIT 36 % (33-45); LYMPHOCYTES # (AUTO) 0.8 K/uL (0.8-4.8); LYMPHOCYTES % (AUTO) 14.7 % (20.0-44.0); MEAN CORPUSCULAR HGB CONC 36 g/dl (31.0-36.0); MEAN CORPUSCULAR VOLUME 92 fL (82-100); MONOCYTES # (AUTO) 0.6 K/uL (0.1-1.30); MONOCYTES % (AUTO) 11.1 % (2.0-12.0); NEUTROPHILS # (AUTO) 3.8 K/uL (1.8-8.9); NEUTROPHILS % (AUTO) 71.9 % (43.0-81.0); PLATELET COUNT (AUTO) 327 K/uL (150-450); RED BLOOD CELL COUNT(AUTO) 3.86 MIL/uL (4.0-5.2); WHITE BLOOD COUNT (AUTO) 5.3 K/uL (4.3-11.0)
[2022-01-25 08:00] VITALS: BP 164/84
[2022-01-25] MEDS ORDERED: Medication Not On Formulary EA (Vit C/Vitamin E Acetate/Cranb (Cranberry Concentrate Sof PO SCH (09:00)
[2022-01-25] MEDS: cetrizine 10 MG TABLET PO SCH (09:48)
[2022-01-25] MEDS ORDERED: AMLODIPINE BESYLATE 5 MG TABLET PO ONE (10:00)
--- NOTE | 2022-01-25 11:00 | NUR ---
RN NOTE PATIENT IV INFILTRATED REMOVED CLEANED AND NOTIFIED CHARGE NURSE,CENTRIFUGAL SPINNER NOTIFIED,SHE ORDERED MIDLINE NOTED AND CARRIED OUT.
--- NOTE | 2022-01-25 11:45 | NUR ---
RN NOTE PATIENT MIDLINE DONE,SHE GOT MIDLINE INTACT PATENT CONTINUE IV HYDRATION.
[2022-01-25 12:00] VITALS: BP 134/62
[2022-01-25 16:00] VITALS: BP 152/91
[2022-01-25] MEDS: ASPIRIN EC 81 MG TABLET.DR PO SCH (17:09)
[2022-01-25] MEDS: VALSARTAN 80 MG TABLET PO SCH (17:09)
[2022-01-25] MEDS: ACIDOPHILUS/BULGARICUS 1 EACH TAB.CHEW PO SCH (17:09)
--- NOTE | 2022-01-25 18:37 | NUR ---
RN NOTE PATIENT REMAINS CONFUSED,OPEN EYES SPEAKS SOME WORD PERSIAN,ON ROOM AIR O2:98% IV SITE IS ON LEFT UPPER ARM MIDLINE INTACT PATENT ON IV HYDRATION NS 75CC./HR ALL DUE MEDS GIVEN MD ORDERED KEPT CLEAN AND DRY ALL THE TIME,KEPT COMFORTABLE,BILATERAL WRIST SOFT RESTRAIN IN PLACE CHECKED EVERY 15 MINS FOR SKIN BREAKDOWN AND CIRCULATION KEPT HEAD OF THE BED ELEVATED ENDORSE NEXT COMING SHIFT FOR CONTINUATION OF CARE.
--- NOTE | 2022-01-25 19:40 | NUR ---
RN NOTE RECEIVED PATIENT IN BED, AWAKE AND VERBALLY RESPONSIVE. NO SEIZURES NOTED AT THIS TIME BUT WILL CONTINUE TO MONITOR. NO DISTRESS NOTED. BREATHING EVEN AND UNLABORED. FOUND ON ROOM AIR. NO RESPIRATORY DISTRESS. ON TELE MONITORING. NO S/S OF DISCOMFORT. SKIN IS WARM AND DRY. LEFT UPPER ARM MIDLINE INFUSING NS AT 75 CC/HR. DRESSING INTACT. NO LEAKING NOTED. PATIENT IS INCONTINENT. ASSISTED WITH HYGIENE CARE. TURNED AND REPOSITIONED WITH GARDENER. PROVIDED WITH FLUIDS FOR HYDRATION. NOTED WITH BILATERAL SOFT WRIST RESTRAINTS. RELEASED TO ASSIST WITH UPPER EXTREMITY RANGE OF MOTION. REAPPLIED PATIENT IS TUGGING ON IV LINE. 2 FINGER SPACE OBSERVED, NO S/S OF SKIN BREAKDOWN AROUND WRIST. BED LOW, IN LOCKED POSITION. CALL LIGHT WITHIN REACH. WILL CONTINUE TO MONITOR.
[2022-01-25 20:00] VITALS: BP 129/72
[2022-01-25] MEDS: MIRTAZAPINE 15 MG TABLET PO SCH (21:46)
[2022-01-25] MEDS: DOXAZOSIN MESYLATE (1 MG) 1 MG TABLET PO SCH (21:46)
[2022-01-26] VITALS: BP 121/71
--- NOTE | 2022-01-26 | NUR ---
RN NOTE PATIENT WITH ORDER OF URINE CULTURES. SPA TECHNICIAN, MINNIE, AGREED FOR STRAIGHT CATHETERIZATION FOR URINE COLLECTION. STERILE PROCEDURE OBSERVED. COLLECTED ABOUT 700 CC OF YELLOW URINE. URINE CULTURE COLLECTED, PLACED IN BIOHAZARD BAG, PLACED INSIDE FRIDGE.
[2022-01-26 05:00] VITALS: BP 140/65
[2022-01-26] MEDS: IV NS 0.9% 1,000 ML IV PRN ×2 (06:01→19:39)
--- NOTE | 2022-01-26 06:32 | NUR ---
RN NOTE NO SIGNIFICANT CHANGES. PATIENT SLEPT WELL THROUGH THE NIGHT. NO S/S OF DISTRESS. KEPT CLEAN AND DRY. OFFERED FLUIDS FOR HYDRATION. OFFERED SNACKS. TURNED AND REPOSITIONED EVERY 2 HOURS. BILATERAL SOFT WRIST RESTRAINTS RELEASED EVERY HOUR TO ASSIST WITH RANGE OF MOTION. 2 FINGER SPACE OBSERVED AT ALL TIMES. BED LOW, IN LOCKED POSITION, CALL LIGHT WITHIN REACH.
--- NOTE | 2022-01-26 07:30 | NUR ---
LUIS EDUARDO RN NOTE RECEIVED PATIENT IN BED, EYES CLOSED, RESPONDS TO NAME AND TOUCH, AOX1, MURMURS TO SELF, ON ROOM AIR, O2 ST 99%, SR HR 76 ON MONITOR, NO SEIZURES, NO DISTRESS/ NO SIGNS OF PAIN OR DISCOMFORT, RESPIRATION UNLABORED, WITH LEFT UPPER ARM MIDLINE WITH NS AT 75 ML/HR INFUSING WELL, SITE CLEAR,CDI DRESSING. WITH BILAT SOFT WRIST RESTRAINT, PER NIGH SHIFT PATIENT PULLING ON IV LINES, RELEASED AND CHECKED FOR CIRCULATION/PULSE, THEN EVERY 2 HOURS. PROVIDED NUTRITION AND HYDRATION. BED LOW, IN LOCKED POSITION. CALL LIGHT WITHIN REACH. WILL CONTINUE TO MONITOR.
[2022-01-26 07:56] LABS: CALCIUM, SERUM 7.9 mg/dL (8.5-10.1); CREATININE 0.6 mg/dL (0.6-1.3); POTASSIUM 3.4 mmol/L (3.5-5.1)
[2022-01-26 08:00] VITALS: BP 141/77
[2022-01-26] MEDS: AMLODIPINE BESYLATE 5 MG TABLET PO SCH (09:12)
[2022-01-26] MEDS: cetrizine 10 MG TABLET PO SCH (09:12)
--- NOTE | 2022-01-26 09:30 | NUR ---
RN NOTES DUE MEDS GIVEN
[2022-01-26] MEDS ORDERED: POTASSIUM CHLORIDE 20 MEQ TAB.PRT.SR PO ONE (10:00)
[2022-01-26] MEDS: ENOXAPARIN SODIUM 40 MG/0.4 ML DISP.SYRIN SQ SCH (10:22)
[2022-01-26 12:00] VITALS: BP 170/74
[2022-01-26 16:00] VITALS: BP 137/80
--- NOTE | 2022-01-26 16:07 | NUR ---
RN NOTES PT'S DAUGHTER ESTRELLITA [DPOA] - [phone] - DOES NOT WANT ANY TUBE FEEDING. AND ANY KIND OF PROCEDURE SHOULD BE ADDRESSED FIRST TO HER. CHARGE NURSE SOON NOTIFIED WELL.
[2022-01-26 16:14] LABS: BILIRUBIN,URINE NEGATIVE (NEGATIVE); COLOR,URINE YELLOW (YELLOW); LEUKOCYTE ESTERASE ,URINE NEGATIVE (NEGATIVE); NITRITE, URINE NEGATIVE (NEGATIVE); PH,URINE 7.5 (5.0-8.0); PROTEIN,URINE NEGATIVE (NEGATIVE); UGLUCOSE NEGATIVE (NEGATIVE)
[2022-01-26 16:47] LABS: BACTERIA,URINE None seen /HPF (None Seen); RBC,URINE 0-2 /HPF (0-2); SQUAMOUS EPITHELIAL CELL,UR 0-2 /HPF (None Seen); WBC,URINE 0-2 /HPF (0-3)
[2022-01-26] MEDS: ASPIRIN EC 81 MG TABLET.DR PO SCH (17:37)
[2022-01-26] MEDS: ACIDOPHILUS/BULGARICUS 1 EACH TAB.CHEW PO SCH (17:37)
[2022-01-26] MEDS: VALSARTAN 80 MG TABLET PO SCH (17:38)
--- NOTE | 2022-01-26 18:39 | NUR ---
SUPERVISOR CORE DRILLING CLOSING NOTE PATIENT NOW RAPID NEGATIVE. PATIENT RESTING IN BED, RESPONDS TO NAME AND TOUCH, AOX1, MOANS, ON ROOM AIR, O2 ST 98%, SR HR 98 ON MONITOR, NO SEIZURES, NO DISTRESS/ NO SIGNS OF PAIN OR DISCOMFORT, RESPIRATION UNLABORED, WITH LEFT UPPER ARM MIDLINE WITH NS AT 75 ML/HR INFUSING WELL, SITE CLEAR, CDI DRESSING. NOW WITH MITTENS BILATERAL PER DAUGHTER REQUEST. PATIENT PULLING ON IV LINES, RELEASED AND CHECKED FOR CIRCULATION/PULSE, THEN EVERY 2 HOURS. PROVIDED NUTRITION AND HYDRATION. BED LOW, IN LOCKED POSITION. CALL LIGHT WITHIN REACH. ALL NEEDS MET, TURNED AND REPOSITION Q 2 HOURS. PM CARE DONE. WILL ENDORSE TO NEXT SHIFT FOR [place].
--- NOTE | 2022-01-26 19:50 | NUR ---
SERVICE ADVOCATE CONTACT NOTE RECEIVED PATIENT IN BED, AWAKE A/O X1, ON ROOM AIR. NO RESPIRATORY DISTRESS. BREATHING EVEN AND UNLABORED, HOB ELEVATED FOR MAXIMUM LUNG EXPANSION, ON TELE MONITORING. NO S/S OF DISCOMFORT. SKIN IS WARM AND DRY. WITH ALVERTO MIDLINE INFUSING NS AT 75 CC/HR. NOTED WITH BILATERAL SOFT WRIST MITTENS IN PLACE. RELEASED TO ASSIST WITH UPPER EXTREMITY RANGE OF MOTION. REAPPLIED PATIENT IS TUGGING ON IV LINE. CALL LIGHT WITHIN REACH, BED LOWEST AND LOCKED POSITION. WILL CONTINUE TO MONITOR THROUGHOUT THE SHIFT.
[2022-01-26 20:00] VITALS: BP 117/52
[2022-01-26] MEDS: MIRTAZAPINE 15 MG TABLET PO SCH (21:33)
[2022-01-26] MEDS: DOXAZOSIN MESYLATE (1 MG) 1 MG TABLET PO SCH (21:33)
[2022-01-27] VITALS: BP 125/56
[2022-01-27 04:00] VITALS: BP 125/56
[2022-01-27 07:14] LABS: CALCIUM, SERUM 7.9 mg/dL (8.5-10.1); CREATININE 0.7 mg/dL (0.6-1.3); POTASSIUM 3.8 mmol/L (3.5-5.1)
--- NOTE | 2022-01-27 07:29 | NUR ---
ZOO CARETAKER CLOSING NOTE PATIENT IN BED, AWAKE A/O X1, ON ROOM AIR. NO RESPIRATORY DISTRESS. BREATHING EVEN AND UNLABORED, HOB ELEVATED FOR MAXIMUM LUNG EXPANSION, ON TELE MONITORING. NO S/S OF DISCOMFORT. SKIN IS WARM AND DRY. WITH ALVERTO MIDLINE INFUSING NS AT 75 CC/HR. NOTED WITH BILATERAL SOFT WRIST MITTENS IN PLACE. RELEASED TO ASSIST WITH UPPER EXTREMITY RANGE OF MOTION. REAPPLIED PATIENT IS TUGGING ON IV LINE. ALL NEEDS ATTENDED, ALL DUE MEDS GIVEN, KEPT DRY AND CLEAN, CALL LIGHT WITHIN REACH, BED LOWEST AND LOCKED POSITION. WILL ENDORSE TO AM SHIFT FOR [place]
--- NOTE | 2022-01-27 07:33 | NUR ---
BOAT BUILDER OPENING NOTE Patient in bed, asleep. A/O x 1. On room air, breathing evenly and unlabored. No SOB or s/s of distress noted. IV access on ALVERTO midline infusing NS at 75 ml/hr. Bilateral restraints, mittens, noted. Safety precautions in place: bed in low, locked position; siderails up x 2, call light within reach. Will continue to monitor. Addendum: 01/27/22 at 0738 by IMGNON ZELAYA RN ADD: On tele monitoring showing SR, HR on the 60's.
[2022-01-27 08:00] VITALS: BP 121/57
[2022-01-27] MEDS: ENOXAPARIN SODIUM 40 MG/0.4 ML DISP.SYRIN SQ SCH (08:38)
[2022-01-27] MEDS: cetrizine 10 MG TABLET PO SCH ×2 (08:39→08:46)
[2022-01-27] MEDS: AMLODIPINE BESYLATE 5 MG TABLET PO SCH ×2 (08:39→08:46)
--- NOTE | 2022-01-27 09:00 | NUR ---
RN NOTE Patient refused AM meds.
[2022-01-27] MEDS: IV NS 0.9% 1,000 ML IV PRN (09:26)
[2022-01-27 12:00] VITALS: BP 140/58
[2022-01-27 16:00] VITALS: BP 145/77
[2022-01-27] MEDS: VALSARTAN 80 MG TABLET PO SCH (17:22)
[2022-01-27] MEDS: ASPIRIN EC 81 MG TABLET.DR PO SCH (17:22)
[2022-01-27] MEDS: ACIDOPHILUS/BULGARICUS 1 EACH TAB.CHEW PO SCH (17:22)
--- NOTE | 2022-01-27 18:44 | NUR ---
CONCRETE SMOOTHER CLOSING NOTE Patient in bed, resting. A/O x 1, confused. Stable on room air, breathing evenly and unlabored. No SOB or s/s of distress noted. IV access on ALVERTO midline infusing NS at 75 ml/hr. Bilateral restraints with mittens, noted. On tele monitoring showing Sinus tachycardia with 1st degree block, HR 105. Patient kept clean and dry. Due meds given. Safety precautions maintained: bed in low, locked position; siderails up x 2, call light within reach. Will endorse to manufacturing shift supervisor nurse for [place].
[2022-01-27 20:00] VITALS: BP 135/64
--- NOTE | 2022-01-27 21:20 | NUR ---
automotive worker foreman Opening Note Pt received in bed, awake, A&O x1, appears quiet but noted to be attempting to remove mittens. Pt has bilateral soft wrist restraints with only the left one attached at the moment; also has bilateral mittens. Pt on RA with O2sat currently at 99%; no s/s of resp distress, no SOB noted, non-labored and equal breathing. Pt attached to external monitor, noted to be ST with 1st degree heart block, current HR is 105. ALVERTO midline intact and patent, noted to have NS at 7 ml/hr. Bed in lowest position, call light within reach, side rails up x3. Will continue to monitor throughout the night. Addendum: 01/27/22 at 2123 by PRINCESS KIRILL LEON NS at 75 ml/hr Addendum: 01/27/22 at 2206 by PRINCESS KIRILL LEON Right soft wrist restraint attached, not left.
[2022-01-27] MEDS: DOXAZOSIN MESYLATE (1 MG) 1 MG TABLET PO SCH (21:57)
[2022-01-27] MEDS: MIRTAZAPINE 15 MG TABLET PO SCH (21:57)
[2022-01-28] VITALS: BP 128/67
[2022-01-28] MEDS: IV NS 0.9% 1,000 ML IV PRN ×2 (02:58→22:18)
[2022-01-28 04:00] VITALS: BP 112/57
--- NOTE | 2022-01-28 06:20 | NUR ---
advertising dispatch clerk Closing Note Pt in bed, slept well throughout the night. Pt unable to answer when asked to state her name, , or where she is. Pt was quiet throughout the night and remains on soft wrist restraints with left one attached at the moment; also remains on bilateral mittens. Pt still on RA with O2sat ranging from 97%-99% during night; no s/s of resp distress, no SOB noted, non-labored and equal breathing. Attached to external monitor, now SR with HR 62. ALVERTO midline intact and patent, NS continues at 75 ml/hr. Bed in lowest position, call light within reach, side rails up x3. Will endorse to dayshift nurse to continue care.
--- NOTE | 2022-01-28 07:15 | NUR ---
oracle soa architect Opening Note Pt received in bed, asleep, A&O x1, appears quiet but noted to be attempting to remove mittens. Pt has bilateral soft wrist restraints with only the left one attached at the moment; also has bilateral mittens. Pt on RA with O2sat currently at 99%; no s/s of resp distress, no SOB noted, non-labored and equal breathing. Pt attached to external monitor, noted to be ST with 1st degree heart block, current HR is 105. ALVERTO midline intact and patent, noted to have NS at 7 5ml/hr. Bed in lowest position, call light within reach, side rails up x3. Will continue to monitor .
[2022-01-28 08:25] VITALS: BP 148/56
[2022-01-28] MEDS: cetrizine 10 MG TABLET PO SCH (09:20)
[2022-01-28] MEDS: AMLODIPINE BESYLATE 5 MG TABLET PO SCH (09:20)
[2022-01-28] MEDS: ENOXAPARIN SODIUM 40 MG/0.4 ML DISP.SYRIN SQ SCH (09:22)
[2022-01-28 12:00] VITALS: BP 133/63
[2022-01-28 13:39] LABS: CALCIUM, SERUM 7.9 mg/dL (8.5-10.1); CREATININE 0.7 mg/dL (0.6-1.3); POTASSIUM 3.3 mmol/L (3.5-5.1)
[2022-01-28] MEDS ORDERED: AMLO-212 PO (14:21)
[2022-01-28 16:00] VITALS: BP 132/64
--- NOTE | 2022-01-28 16:30 | NUR ---
RN Notes: COVID rapid test was positive, per [place]o director case she will be discharged tomorrow, resume contact isolation
[2022-01-28] MEDS: ACIDOPHILUS/BULGARICUS 1 EACH TAB.CHEW PO SCH (18:32)
[2022-01-28] MEDS: VALSARTAN 80 MG TABLET PO SCH (18:37)
[2022-01-28] MEDS: ASPIRIN EC 81 MG TABLET.DR PO SCH (18:39)
--- NOTE | 2022-01-28 19:30 | NUR ---
dumper bulk system Closing Note Pt in bed, awake, alert x 1. Pt was quiet throughout the day and remains on soft wrist restraints with left one attached at the moment; also remains on bilateral mittens. Pt still on RA with O2sat ranging from 97%-99% during night; no s/s of resp distress, no SOB noted, non-labored and equal breathing. Attached to external monitor, now SR with HR 62. ALVERTO midline intact and patent, NS continues at 75 ml/hr. Bed in lowest position, call light within reach, side rails up x3. will continue to monitor
--- NOTE | 2022-01-28 19:40 | NUR ---
RN OPENING NOTES: RECEIVED PT IN BED, OPENED BOTH EYES, A/O X1, RESPONSIVE TO PAINFUL STIMULI. BREATHING EVEN AND UNLABORED. ON ROOM AIR AND PT TOLERATED WELL. IV ACCESS ON ALVERTO MIDLINE, RUNNING NS 75CC/HR. NO FACIAL GRIMACING NOTED. NO ACUTE DISTRESS. HAS BILATERAL SOFT MITTENS. RT HAND SOFT RESTRAINTS. ALL SAFETY MEASURES IN PLACE. SIDE RAILS UP X3, BED IN LOWEST POSITION AND LOCKED. PLACE CALL LIGHT WITH IN REACH. WILL CONTINUE TO MONITOR.
[2022-01-28 20:00] VITALS: BP 130/61
[2022-01-28] MEDS: DOXAZOSIN MESYLATE (1 MG) 1 MG TABLET PO SCH (22:18)
[2022-01-28] MEDS: MIRTAZAPINE 15 MG TABLET PO SCH (22:18)
[2022-01-29] VITALS: BP 109/58
[2022-01-29 04:00] VITALS: BP 142/67
--- NOTE | 2022-01-29 06:35 | NUR ---
RN CLOSING NOTES: PT IN BED, SLEEPING BUT EASILY AROUSABLE, A/O X1, RESPONSIVE TO PAINFUL STIMULI. BREATHING EVEN AND UNLABORED. ON ROOM AIR AND PT TOLERATED WELL. O2 SAT 99%. IV ACCESS ON AVLERTO MIDLINE, RUNNING NS 75CC/HR. NO FACIAL GRIMACING NOTED. NO ACUTE DISTRESS. HAS BILATERAL SOFT MITTENS. RT HAND SOFT RESTRAINTS. ALL DUE MEDS GIVEN ORDERED. ALL SAFETY MEASURES IN PLACE. SIDE RAILS UP X3, BED IN LOWEST POSITION AND LOCKED. PLACE CALL LIGHT WITH IN REACH. WILL ENDORSE TO MORNING SHIFT NURSE.
--- NOTE | 2022-01-29 07:20 | NUR ---
RN OPENING NOTE - PT IN BED, A/O X1, BREATHING EVEN AND NON-LABORED. ON ROOM AIR AND TOLERATING WELL. IV ACCESS ON ALVERTO MIDLINE, RUNNING NS 75CC/HR. NO PAIN NOTED. NO ACUTE DISTRESS. HAS BILATERAL SOFT MITTENS. RT HAND SOFT RESTRAINTS. ALL SAFETY MEASURES IN PLACE. SIDE RAILS UP X3, BED IN LOWEST POSITION AND LOCKED. PLACE CALL LIGHT WITH IN REACH. WILL CONTINUE TO MONITOR / ASSIST
[2022-01-29 08:00] VITALS: BP 129/99
[2022-01-29] MEDS: cetrizine 10 MG TABLET PO SCH (08:26)
[2022-01-29] MEDS: ENOXAPARIN SODIUM 40 MG/0.4 ML DISP.SYRIN SQ SCH (08:27)
[2022-01-29 08:28] VITALS: BP 129/99
[2022-01-29] MEDS: AMLODIPINE BESYLATE 5 MG TABLET PO SCH (08:28)
--- NOTE | 2022-01-29 10:20 | NUR ---
RN NOTE- [facility], ID WRISTBAND REMOVED AND MIDLINE REMOVED. FAMILY AWARE OF DC. AFTERCARE CALLED W REPORT TO FACILITY. ESCORTED OFF UNIT W AMBULANCE STAFF.
== END 2022-01-29 10:20 | DRG 640 ==
LOC: ER 11:58 → TRANSITION 14:58 → TELE-TD 16:23 → TELE1 01-26 17:48
PROVIDERS: ADMIT Internal Medicine; ATTEND Nurse Practitioner Acute Care
PROC: 05H633Z Insertion of Infusion Device into Left Subclavian Vein, Percutaneous Approach (ICD-10-PCS; principal; 2022-01-25)
PROC: B547ZZA Ultrasonography of Left Subclavian Vein, Guidance (ICD-10-PCS; 2022-01-25)
DX: E87.1 Hypo-osmolality and hyponatremia (principal); U07.1 COVID-19; G93.41 Metabolic encephalopathy; H93.19 Tinnitus, unspecified ear; E78.5 Hyperlipidemia, unspecified; E86.1 Hypovolemia; E87.6 Hypokalemia; F03.90 Unspecified dementia, unspecified severity, without behavioral disturbance, psychotic disturbance, mood disturbance, and anxiety; I10 Essential (primary) hypertension; R13.12 Dysphagia, oropharyngeal phase; Z87.440 Personal history of urinary (tract) infections; F09 Unspecified mental disorder due to known physiological condition
CPT/HCPCS: 36415; 76770-TC; 80048-TC; 80053-TC; 80076-TC; 81001; 82140-TC; 82533; 83690-TC; 84300-TC; 84443-TC; 84484-TC; 85025-TC; 85378-TC; 86140-TC; 87081-TC; 92526; 92611-TC; 97116-TC; 97530-TC; G0378; J1650; J7030; J7040

== ENCOUNTER → 2022-01-24 | Outpatient (CLI) | payer MEDICARE, OTHER | END | disposition home or self-care (01) | LOC: MSC 10:15 | PROVIDERS: ATTEND Internal Medicine | DX: E87.1 Hypo-osmolality and hyponatremia (principal); U07.1 COVID-19; R60.0 Localized edema; Z87.440 Personal history of urinary (tract) infections; R41.9 Unspecified symptoms and signs involving cognitive functions and awareness; I10 Essential (primary) hypertension; H93.19 Tinnitus, unspecified ear; E78.5 Hyperlipidemia, unspecified; G47.00 Insomnia, unspecified; R19.7 Diarrhea, unspecified; R39.15 Urgency of urination; R42 Dizziness and giddiness; F41.9 Anxiety disorder, unspecified; H91.90 Unspecified hearing loss, unspecified ear; R53.83 Other fatigue; R26.9 Unspecified abnormalities of gait and mobility ==

== ENCOUNTER → 2022-02-04 | Outpatient (CLI) | payer MEDICARE, OTHER ==
[~2022-02-04] MED LIST changes: +AMLO-212 PO; -ATOR10TA PO; +BIOT5000 PO; +CETI-90 PO; -CITA10TA9 PO; +CRAN1CAP6 PO; +DOXA2TAB2 PO; +LACT1TAB25 PO; -MONT10TA22 PO; -PANT40TA49 PO
== END ==
LOC: MSC 16:00
PROVIDERS: ATTEND Internal Medicine
DX: R53.81 Other malaise (principal); U07.1 COVID-19; R53.83 Other fatigue; E87.1 Hypo-osmolality and hyponatremia; R60.0 Localized edema; Z87.440 Personal history of urinary (tract) infections; R41.9 Unspecified symptoms and signs involving cognitive functions and awareness; I10 Essential (primary) hypertension; H93.19 Tinnitus, unspecified ear; E78.5 Hyperlipidemia, unspecified; G47.00 Insomnia, unspecified; R19.7 Diarrhea, unspecified; R39.15 Urgency of urination; R42 Dizziness and giddiness; F41.9 Anxiety disorder, unspecified; H91.90 Unspecified hearing loss, unspecified ear; R26.9 Unspecified abnormalities of gait and mobility

== ENCOUNTER → 2022-02-26 | Outpatient (CLI) | payer MEDICARE, OTHER | LOC: MSC 14:00 | PROVIDERS: ATTEND Internal Medicine | DX: R53.81 Other malaise (principal); F41.9 Anxiety disorder, unspecified; R41.9 Unspecified symptoms and signs involving cognitive functions and awareness; E87.1 Hypo-osmolality and hyponatremia; R26.9 Unspecified abnormalities of gait and mobility; R60.0 Localized edema; Z86.16 Personal history of COVID-19; Z87.440 Personal history of urinary (tract) infections; I10 Essential (primary) hypertension; H93.19 Tinnitus, unspecified ear; E78.5 Hyperlipidemia, unspecified; G47.00 Insomnia, unspecified; R19.7 Diarrhea, unspecified; R39.15 Urgency of urination; R42 Dizziness and giddiness; H91.90 Unspecified hearing loss, unspecified ear ==

== ENCOUNTER → 2022-03-01 | Outpatient (CLI) | payer MEDICARE, OTHER | END | disposition home or self-care (01) | LOC: MSC 09:15 | PROVIDERS: ATTEND Internal Medicine | DX: Z51.89 Encounter for other specified aftercare (principal); R53.81 Other malaise; E87.1 Hypo-osmolality and hyponatremia; R60.0 Localized edema; R41.9 Unspecified symptoms and signs involving cognitive functions and awareness; F41.9 Anxiety disorder, unspecified; I10 Essential (primary) hypertension; H93.19 Tinnitus, unspecified ear; E78.5 Hyperlipidemia, unspecified; G47.00 Insomnia, unspecified; R19.7 Diarrhea, unspecified; R39.15 Urgency of urination; Z87.440 Personal history of urinary (tract) infections; R42 Dizziness and giddiness; H91.90 Unspecified hearing loss, unspecified ear; R26.9 Unspecified abnormalities of gait and mobility; Z86.16 Personal history of COVID-19 ==

== ENCOUNTER 2022-03-05 09:15 | Outpatient (CLI) | payer MEDICARE, OTHER | END 2022-03-05 23:59 | disposition home or self-care (01) | LOC: MSC 09:15 | PROVIDERS: ATTEND Internal Medicine | DX: R63.0 Anorexia (principal); F41.9 Anxiety disorder, unspecified; R53.81 Other malaise; R41.9 Unspecified symptoms and signs involving cognitive functions and awareness; E87.1 Hypo-osmolality and hyponatremia; I10 Essential (primary) hypertension; R60.0 Localized edema; H93.19 Tinnitus, unspecified ear; E78.5 Hyperlipidemia, unspecified; G47.00 Insomnia, unspecified; R19.7 Diarrhea, unspecified; R39.15 Urgency of urination; Z87.440 Personal history of urinary (tract) infections; R42 Dizziness and giddiness; H91.90 Unspecified hearing loss, unspecified ear; R26.9 Unspecified abnormalities of gait and mobility; Z86.16 Personal history of COVID-19 ==

== ENCOUNTER → 2022-03-07 | Outpatient (CLI) | payer MEDICARE, OTHER | END | disposition home or self-care (01) | LOC: MSC 15:15 | PROVIDERS: ATTEND Internal Medicine | DX: F32.A Depression, unspecified (principal); F41.9 Anxiety disorder, unspecified; R63.0 Anorexia; R53.81 Other malaise; R26.89 Other abnormalities of gait and mobility; R41.89 Other symptoms and signs involving cognitive functions and awareness; E87.1 Hypo-osmolality and hyponatremia; I10 Essential (primary) hypertension; R60.0 Localized edema; H93.19 Tinnitus, unspecified ear; E78.5 Hyperlipidemia, unspecified; G47.00 Insomnia, unspecified; R19.7 Diarrhea, unspecified; R39.15 Urgency of urination; Z87.440 Personal history of urinary (tract) infections; R42 Dizziness and giddiness; H91.90 Unspecified hearing loss, unspecified ear; Z86.16 Personal history of COVID-19 ==

== ENCOUNTER → 2022-03-27 | Outpatient (CLI) | payer MEDICARE, OTHER | LOC: MSC 15:30 | PROVIDERS: ATTEND Internal Medicine | DX: R63.0 Anorexia (principal); F32.89 Other specified depressive episodes; F41.9 Anxiety disorder, unspecified; R53.81 Other malaise; R26.89 Other abnormalities of gait and mobility; R41.89 Other symptoms and signs involving cognitive functions and awareness; E87.1 Hypo-osmolality and hyponatremia; I10 Essential (primary) hypertension; R53.83 Other fatigue; R60.0 Localized edema; H93.19 Tinnitus, unspecified ear; E78.5 Hyperlipidemia, unspecified; G47.00 Insomnia, unspecified; R19.7 Diarrhea, unspecified; R39.15 Urgency of urination; Z87.440 Personal history of urinary (tract) infections; R42 Dizziness and giddiness; H91.90 Unspecified hearing loss, unspecified ear; Z86.16 Personal history of COVID-19 ==

== ENCOUNTER 2022-04-02 14:00 | Outpatient (CLI) | payer MEDICARE, OTHER | END 2022-04-02 23:59 | disposition home or self-care (01) | LOC: MSC 14:00 | PROVIDERS: ATTEND Internal Medicine | DX: R40.0 Somnolence (principal); R41.89 Other symptoms and signs involving cognitive functions and awareness; F32.89 Other specified depressive episodes; F41.9 Anxiety disorder, unspecified; R63.0 Anorexia; R53.81 Other malaise; R53.83 Other fatigue; R26.89 Other abnormalities of gait and mobility; E87.1 Hypo-osmolality and hyponatremia; I10 Essential (primary) hypertension; R60.0 Localized edema; H93.19 Tinnitus, unspecified ear; E78.5 Hyperlipidemia, unspecified; G47.00 Insomnia, unspecified; R19.7 Diarrhea, unspecified; R39.15 Urgency of urination; Z87.440 Personal history of urinary (tract) infections; R42 Dizziness and giddiness; H91.90 Unspecified hearing loss, unspecified ear; Z86.16 Personal history of COVID-19 ==

== ENCOUNTER → 2022-04-04 | Outpatient (CLI) | payer MEDICARE, OTHER | END | disposition home or self-care (01) | LOC: MSC 15:00 | PROVIDERS: ATTEND Internal Medicine | DX: R40.0 Somnolence (principal); R63.0 Anorexia; R41.89 Other symptoms and signs involving cognitive functions and awareness; F32.89 Other specified depressive episodes; F41.9 Anxiety disorder, unspecified; R53.81 Other malaise; R53.83 Other fatigue; R26.89 Other abnormalities of gait and mobility; E87.1 Hypo-osmolality and hyponatremia; I10 Essential (primary) hypertension; R60.0 Localized edema; H93.19 Tinnitus, unspecified ear; E78.5 Hyperlipidemia, unspecified; G47.00 Insomnia, unspecified; R19.7 Diarrhea, unspecified; R39.15 Urgency of urination; Z87.440 Personal history of urinary (tract) infections; R42 Dizziness and giddiness; H91.90 Unspecified hearing loss, unspecified ear; Z86.16 Personal history of COVID-19 ==

== ENCOUNTER → 2022-05-21 | Outpatient (CLI) | payer MEDICARE, OTHER | END | disposition home or self-care (01) | LOC: MSC 11:30 | PROVIDERS: ATTEND Internal Medicine | DX: R41.89 Other symptoms and signs involving cognitive functions and awareness (principal); R26.89 Other abnormalities of gait and mobility; R47.1 Dysarthria and anarthria; F41.9 Anxiety disorder, unspecified; F32.89 Other specified depressive episodes; R53.81 Other malaise; E87.1 Hypo-osmolality and hyponatremia; I10 Essential (primary) hypertension; R60.0 Localized edema; H93.19 Tinnitus, unspecified ear; E78.5 Hyperlipidemia, unspecified; G47.00 Insomnia, unspecified; R19.7 Diarrhea, unspecified; R39.15 Urgency of urination; Z87.440 Personal history of urinary (tract) infections; R42 Dizziness and giddiness; H91.90 Unspecified hearing loss, unspecified ear; Z86.16 Personal history of COVID-19 ==

== ENCOUNTER → 2022-05-28 | Outpatient (CLI) | payer MEDICARE, OTHER | END | disposition home or self-care (01) | LOC: MSC 10:00 | PROVIDERS: ATTEND Internal Medicine | DX: F32.89 Other specified depressive episodes (principal); R41.89 Other symptoms and signs involving cognitive functions and awareness; R47.1 Dysarthria and anarthria; F41.9 Anxiety disorder, unspecified; R53.81 Other malaise; R26.89 Other abnormalities of gait and mobility; E87.1 Hypo-osmolality and hyponatremia; R53.83 Other fatigue; I10 Essential (primary) hypertension; R60.0 Localized edema; H93.19 Tinnitus, unspecified ear; E78.5 Hyperlipidemia, unspecified; G47.00 Insomnia, unspecified; R19.7 Diarrhea, unspecified; Z87.440 Personal history of urinary (tract) infections; R42 Dizziness and giddiness; H91.90 Unspecified hearing loss, unspecified ear; Z86.16 Personal history of COVID-19 ==

== ENCOUNTER → 2022-05-31 | Outpatient (CLI) | payer MEDICARE, OTHER | END | disposition home or self-care (01) | LOC: MSC 15:30 | PROVIDERS: ATTEND Internal Medicine | DX: F03.911 Unspecified dementia, unspecified severity, with agitation (principal); R41.89 Other symptoms and signs involving cognitive functions and awareness; F32.89 Other specified depressive episodes; F41.9 Anxiety disorder, unspecified; Z87.440 Personal history of urinary (tract) infections; R47.1 Dysarthria and anarthria; R53.81 Other malaise; E87.1 Hypo-osmolality and hyponatremia; I10 Essential (primary) hypertension; R60.0 Localized edema; H93.19 Tinnitus, unspecified ear; E78.5 Hyperlipidemia, unspecified; G47.00 Insomnia, unspecified; R19.7 Diarrhea, unspecified; R39.15 Urgency of urination; R42 Dizziness and giddiness; H91.90 Unspecified hearing loss, unspecified ear; R26.9 Unspecified abnormalities of gait and mobility; Z86.16 Personal history of COVID-19 ==

== ENCOUNTER 2022-06-04 14:00 | Outpatient (CLI) | payer MEDICARE, OTHER | END 2022-06-04 23:59 | disposition home or self-care (01) | LOC: MSC 14:00 | PROVIDERS: ATTEND Internal Medicine | DX: F03.911 Unspecified dementia, unspecified severity, with agitation (principal); F41.9 Anxiety disorder, unspecified; F32.89 Other specified depressive episodes; Z87.440 Personal history of urinary (tract) infections; R47.1 Dysarthria and anarthria; R26.81 Unsteadiness on feet; R53.81 Other malaise; E87.1 Hypo-osmolality and hyponatremia; I10 Essential (primary) hypertension; R60.0 Localized edema; H93.19 Tinnitus, unspecified ear; E78.5 Hyperlipidemia, unspecified; G47.00 Insomnia, unspecified; R19.7 Diarrhea, unspecified; R42 Dizziness and giddiness; H91.90 Unspecified hearing loss, unspecified ear; Z86.16 Personal history of COVID-19 ==

== ENCOUNTER 2022-06-11 15:30 | Outpatient (CLI) | payer MEDICARE, OTHER | END 2022-06-11 23:59 | disposition home or self-care (01) | LOC: MSC 15:30 | PROVIDERS: ATTEND Internal Medicine | DX: R21 Rash and other nonspecific skin eruption (principal); F03.90 Unspecified dementia, unspecified severity, without behavioral disturbance, psychotic disturbance, mood disturbance, and anxiety; F41.9 Anxiety disorder, unspecified; F32.89 Other specified depressive episodes; Z87.440 Personal history of urinary (tract) infections; R47.1 Dysarthria and anarthria; R26.81 Unsteadiness on feet; R53.81 Other malaise; E87.1 Hypo-osmolality and hyponatremia; I10 Essential (primary) hypertension; R60.0 Localized edema; H93.19 Tinnitus, unspecified ear; E78.5 Hyperlipidemia, unspecified; G47.00 Insomnia, unspecified; R47.01 Aphasia; R19.7 Diarrhea, unspecified; R42 Dizziness and giddiness; H91.90 Unspecified hearing loss, unspecified ear; Z86.16 Personal history of COVID-19 ==

== ENCOUNTER 2022-07-03 14:00 | Outpatient (CLI) | payer MEDICARE, OTHER | END 2022-07-03 23:59 | disposition home or self-care (01) | LOC: MSC 14:00 | PROVIDERS: ATTEND Internal Medicine | DX: R35.0 Frequency of micturition (principal); R39.15 Urgency of urination; Z87.440 Personal history of urinary (tract) infections; E87.5 Hyperkalemia; R41.89 Other symptoms and signs involving cognitive functions and awareness; F32.89 Other specified depressive episodes; F41.9 Anxiety disorder, unspecified; R47.1 Dysarthria and anarthria; R26.9 Unspecified abnormalities of gait and mobility; R53.81 Other malaise; E87.1 Hypo-osmolality and hyponatremia; I10 Essential (primary) hypertension; R60.0 Localized edema; R47.01 Aphasia; H93.19 Tinnitus, unspecified ear; E78.5 Hyperlipidemia, unspecified; G47.00 Insomnia, unspecified; R19.7 Diarrhea, unspecified; R42 Dizziness and giddiness; H91.90 Unspecified hearing loss, unspecified ear; Z86.16 Personal history of COVID-19 ==

== ENCOUNTER → 2022-07-05 | Outpatient (CLI) | payer MEDICARE, OTHER | END | disposition home or self-care (01) | LOC: MSC 14:30 | PROVIDERS: ATTEND Internal Medicine | DX: R39.15 Urgency of urination (principal); R35.0 Frequency of micturition; Z87.440 Personal history of urinary (tract) infections; E87.5 Hyperkalemia; R41.89 Other symptoms and signs involving cognitive functions and awareness; F32.89 Other specified depressive episodes; F41.9 Anxiety disorder, unspecified; R47.1 Dysarthria and anarthria; R26.9 Unspecified abnormalities of gait and mobility; R53.81 Other malaise; E87.1 Hypo-osmolality and hyponatremia; I10 Essential (primary) hypertension; R60.0 Localized edema; R47.01 Aphasia; H93.19 Tinnitus, unspecified ear; E78.5 Hyperlipidemia, unspecified; G47.00 Insomnia, unspecified; R19.7 Diarrhea, unspecified; R42 Dizziness and giddiness; H91.90 Unspecified hearing loss, unspecified ear; Z86.16 Personal history of COVID-19 ==

== ENCOUNTER 2022-07-22 13:00 | Outpatient (CLI) | payer MEDICARE, OTHER | END 2022-07-22 23:59 | disposition home or self-care (01) | LOC: MSC 13:00 | PROVIDERS: ATTEND Internal Medicine | DX: R39.15 Urgency of urination (principal); Z87.440 Personal history of urinary (tract) infections; R45.1 Restlessness and agitation; R41.89 Other symptoms and signs involving cognitive functions and awareness; F32.89 Other specified depressive episodes; F41.9 Anxiety disorder, unspecified; E87.5 Hyperkalemia; R47.1 Dysarthria and anarthria; R26.9 Unspecified abnormalities of gait and mobility; R53.81 Other malaise; E87.1 Hypo-osmolality and hyponatremia; I10 Essential (primary) hypertension; R60.0 Localized edema; R47.01 Aphasia; H93.19 Tinnitus, unspecified ear; E78.5 Hyperlipidemia, unspecified; G47.00 Insomnia, unspecified; R19.7 Diarrhea, unspecified; R42 Dizziness and giddiness; H91.90 Unspecified hearing loss, unspecified ear; Z86.16 Personal history of COVID-19 ==

== ENCOUNTER → 2022-07-25 | Outpatient (CLI) | payer MEDICARE, OTHER | END | disposition home or self-care (01) | LOC: MSC 15:00 | PROVIDERS: ATTEND Internal Medicine | DX: F32.89 Other specified depressive episodes (principal); F41.9 Anxiety disorder, unspecified; G47.00 Insomnia, unspecified; R41.89 Other symptoms and signs involving cognitive functions and awareness; Z87.440 Personal history of urinary (tract) infections; R47.1 Dysarthria and anarthria; R47.01 Aphasia; R26.9 Unspecified abnormalities of gait and mobility; R53.81 Other malaise; E87.1 Hypo-osmolality and hyponatremia; I10 Essential (primary) hypertension; R60.0 Localized edema; H93.19 Tinnitus, unspecified ear; E78.5 Hyperlipidemia, unspecified; R19.7 Diarrhea, unspecified; R42 Dizziness and giddiness; H91.90 Unspecified hearing loss, unspecified ear; Z86.16 Personal history of COVID-19 ==

== ENCOUNTER 2022-07-29 13:00 | Outpatient (CLI) | payer MEDICARE, OTHER | END 2022-07-29 23:59 | disposition home or self-care (01) | LOC: MSC 13:00 | PROVIDERS: ATTEND Internal Medicine | DX: G47.00 Insomnia, unspecified (principal); F41.9 Anxiety disorder, unspecified; R41.89 Other symptoms and signs involving cognitive functions and awareness; F32.89 Other specified depressive episodes; Z87.440 Personal history of urinary (tract) infections; R47.1 Dysarthria and anarthria; R26.9 Unspecified abnormalities of gait and mobility; R53.81 Other malaise; E87.1 Hypo-osmolality and hyponatremia; I10 Essential (primary) hypertension; R60.0 Localized edema; R47.01 Aphasia; H93.19 Tinnitus, unspecified ear; E78.5 Hyperlipidemia, unspecified; R42 Dizziness and giddiness; H91.90 Unspecified hearing loss, unspecified ear; Z86.16 Personal history of COVID-19 ==

== ENCOUNTER 2022-08-02 14:30 | Outpatient (CLI) | payer MEDICARE, OTHER | END 2022-08-02 23:59 | disposition home or self-care (01) | LOC: MSC 14:30 | PROVIDERS: ATTEND Internal Medicine | DX: G47.00 Insomnia, unspecified (principal); F41.9 Anxiety disorder, unspecified; R41.89 Other symptoms and signs involving cognitive functions and awareness; F32.89 Other specified depressive episodes; Z87.440 Personal history of urinary (tract) infections; R47.1 Dysarthria and anarthria; R26.9 Unspecified abnormalities of gait and mobility; R53.81 Other malaise; E87.1 Hypo-osmolality and hyponatremia; I10 Essential (primary) hypertension; R60.0 Localized edema; R47.01 Aphasia; H93.19 Tinnitus, unspecified ear; E78.5 Hyperlipidemia, unspecified; R42 Dizziness and giddiness; H91.90 Unspecified hearing loss, unspecified ear; Z86.16 Personal history of COVID-19 ==

== ENCOUNTER → 2022-08-06 | Outpatient (CLI) | payer MEDICARE, OTHER | END | disposition home or self-care (01) | LOC: MSC 14:15 | PROVIDERS: ATTEND Internal Medicine | DX: G47.00 Insomnia, unspecified (principal); F41.8 Other specified anxiety disorders; R41.89 Other symptoms and signs involving cognitive functions and awareness; F32.89 Other specified depressive episodes; R47.1 Dysarthria and anarthria; R26.9 Unspecified abnormalities of gait and mobility; R53.81 Other malaise; E87.1 Hypo-osmolality and hyponatremia; I10 Essential (primary) hypertension; R60.0 Localized edema; R47.01 Aphasia; R19.7 Diarrhea, unspecified; H93.19 Tinnitus, unspecified ear; E78.5 Hyperlipidemia, unspecified; R42 Dizziness and giddiness; H91.90 Unspecified hearing loss, unspecified ear; Z86.16 Personal history of COVID-19 ==

== ENCOUNTER → 2022-08-13 | Outpatient (CLI) | payer MEDICARE, OTHER | END | disposition home or self-care (01) | LOC: MSC 15:30 | PROVIDERS: ATTEND Internal Medicine | DX: F41.8 Other specified anxiety disorders (principal); R41.89 Other symptoms and signs involving cognitive functions and awareness; F32.89 Other specified depressive episodes; G47.00 Insomnia, unspecified; R47.1 Dysarthria and anarthria; R26.9 Unspecified abnormalities of gait and mobility; R53.81 Other malaise; E87.1 Hypo-osmolality and hyponatremia; I10 Essential (primary) hypertension; R60.0 Localized edema; R47.01 Aphasia; E78.5 Hyperlipidemia, unspecified; R42 Dizziness and giddiness; H93.19 Tinnitus, unspecified ear; H91.90 Unspecified hearing loss, unspecified ear; Z86.16 Personal history of COVID-19 ==

== ENCOUNTER 2022-08-14 14:45 | Outpatient (CLI) | payer MEDICARE, OTHER | END 2022-08-14 23:59 | disposition home or self-care (01) | LOC: MSC 14:45 | PROVIDERS: ATTEND Internal Medicine | DX: F41.8 Other specified anxiety disorders (principal); R41.89 Other symptoms and signs involving cognitive functions and awareness; F32.89 Other specified depressive episodes; G47.00 Insomnia, unspecified; R47.1 Dysarthria and anarthria; R26.9 Unspecified abnormalities of gait and mobility; R53.81 Other malaise; E87.1 Hypo-osmolality and hyponatremia; I10 Essential (primary) hypertension; R60.0 Localized edema; R47.01 Aphasia; E78.5 Hyperlipidemia, unspecified; R42 Dizziness and giddiness; H93.19 Tinnitus, unspecified ear; H91.90 Unspecified hearing loss, unspecified ear; Z86.16 Personal history of COVID-19 ==

== ENCOUNTER → 2022-08-16 | Outpatient (CLI) | payer MEDICARE, OTHER | END | disposition home or self-care (01) | LOC: MSC 15:45 | PROVIDERS: ATTEND Internal Medicine | DX: F41.8 Other specified anxiety disorders (principal); R41.89 Other symptoms and signs involving cognitive functions and awareness; F32.89 Other specified depressive episodes; G47.00 Insomnia, unspecified; R47.1 Dysarthria and anarthria; R26.9 Unspecified abnormalities of gait and mobility; R53.81 Other malaise; E87.1 Hypo-osmolality and hyponatremia; I10 Essential (primary) hypertension; R60.0 Localized edema; R47.01 Aphasia; E78.5 Hyperlipidemia, unspecified; R42 Dizziness and giddiness; H93.19 Tinnitus, unspecified ear; H91.90 Unspecified hearing loss, unspecified ear; Z86.16 Personal history of COVID-19 ==

== ENCOUNTER 2022-08-22 14:30 | Outpatient (CLI) | payer MEDICARE, OTHER | END 2022-08-22 23:59 | disposition home or self-care (01) | LOC: MSC 14:30 | PROVIDERS: ATTEND Internal Medicine | DX: F41.8 Other specified anxiety disorders (principal); R41.89 Other symptoms and signs involving cognitive functions and awareness; F32.89 Other specified depressive episodes; E87.5 Hyperkalemia; G47.00 Insomnia, unspecified; R47.1 Dysarthria and anarthria; R26.9 Unspecified abnormalities of gait and mobility; R53.81 Other malaise; E87.1 Hypo-osmolality and hyponatremia; I10 Essential (primary) hypertension; R60.0 Localized edema; R47.01 Aphasia; E78.5 Hyperlipidemia, unspecified; R42 Dizziness and giddiness; H93.19 Tinnitus, unspecified ear; H91.90 Unspecified hearing loss, unspecified ear; Z86.16 Personal history of COVID-19 ==

== ENCOUNTER → 2022-08-27 | Outpatient (CLI) | payer MEDICARE, OTHER | END | disposition home or self-care (01) | LOC: MSC 14:00 | PROVIDERS: ATTEND Internal Medicine | DX: F41.8 Other specified anxiety disorders (principal); R41.89 Other symptoms and signs involving cognitive functions and awareness; F32.89 Other specified depressive episodes; E87.5 Hyperkalemia; G47.00 Insomnia, unspecified; R47.1 Dysarthria and anarthria; R26.9 Unspecified abnormalities of gait and mobility; R53.81 Other malaise; E87.1 Hypo-osmolality and hyponatremia; I10 Essential (primary) hypertension; R60.0 Localized edema; R47.01 Aphasia; E78.5 Hyperlipidemia, unspecified; R19.7 Diarrhea, unspecified; R42 Dizziness and giddiness; H93.19 Tinnitus, unspecified ear; H91.90 Unspecified hearing loss, unspecified ear; Z86.16 Personal history of COVID-19 ==

== ENCOUNTER 2022-08-28 16:00 | Outpatient (CLI) | payer MEDICARE, OTHER | END 2022-08-28 23:59 | disposition home or self-care (01) | LOC: MSC 16:00 | PROVIDERS: ATTEND Internal Medicine | DX: F41.8 Other specified anxiety disorders (principal); R41.89 Other symptoms and signs involving cognitive functions and awareness; F32.89 Other specified depressive episodes; E87.5 Hyperkalemia; G47.00 Insomnia, unspecified; R47.1 Dysarthria and anarthria; R26.9 Unspecified abnormalities of gait and mobility; R53.81 Other malaise; E87.1 Hypo-osmolality and hyponatremia; I10 Essential (primary) hypertension; R60.0 Localized edema; R47.01 Aphasia; E78.5 Hyperlipidemia, unspecified; R42 Dizziness and giddiness; H93.19 Tinnitus, unspecified ear; H91.90 Unspecified hearing loss, unspecified ear; Z86.16 Personal history of COVID-19 ==

== ENCOUNTER 2022-09-11 15:00 | Outpatient (CLI) | payer MEDICARE, OTHER | END 2022-09-11 23:59 | disposition home or self-care (01) | LOC: MSC 15:00 | PROVIDERS: ATTEND Internal Medicine | DX: Z51.89 Encounter for other specified aftercare (principal); M62.81 Muscle weakness (generalized); E87.1 Hypo-osmolality and hyponatremia; F41.8 Other specified anxiety disorders; R41.89 Other symptoms and signs involving cognitive functions and awareness; F32.89 Other specified depressive episodes; E87.5 Hyperkalemia; G47.00 Insomnia, unspecified; R47.1 Dysarthria and anarthria; R26.9 Unspecified abnormalities of gait and mobility; R53.81 Other malaise; I10 Essential (primary) hypertension; R60.0 Localized edema; R47.01 Aphasia; E78.5 Hyperlipidemia, unspecified; R42 Dizziness and giddiness; R19.7 Diarrhea, unspecified; H93.19 Tinnitus, unspecified ear; H91.90 Unspecified hearing loss, unspecified ear; Z86.16 Personal history of COVID-19 ==

== ENCOUNTER 2022-12-12 15:00 | Outpatient (CLI) | payer MEDICARE, OTHER | END 2022-12-12 23:59 | disposition home or self-care (01) | LOC: MSC 15:00 | PROVIDERS: ATTEND Internal Medicine | DX: R55 Syncope and collapse (principal); R25.1 Tremor, unspecified; M62.81 Muscle weakness (generalized); F41.8 Other specified anxiety disorders; R41.89 Other symptoms and signs involving cognitive functions and awareness; F32.89 Other specified depressive episodes; E87.5 Hyperkalemia; G47.00 Insomnia, unspecified; R47.1 Dysarthria and anarthria; I10 Essential (primary) hypertension; R60.0 Localized edema; R47.01 Aphasia; E78.5 Hyperlipidemia, unspecified; R26.9 Unspecified abnormalities of gait and mobility; Z86.16 Personal history of COVID-19 ==

== ENCOUNTER → 2023-05-13 | Outpatient (CLI) | payer MEDICARE, OTHER | END | disposition home or self-care (01) | LOC: MSC 14:30 | PROVIDERS: ATTEND Internal Medicine | DX: U07.1 COVID-19 (principal); G20 Parkinson's disease; F02.80 Dementia in other diseases classified elsewhere, unspecified severity, without behavioral disturbance, psychotic disturbance, mood disturbance, and anxiety; R26.9 Unspecified abnormalities of gait and mobility; R55 Syncope and collapse; F41.9 Anxiety disorder, unspecified; F32.89 Other specified depressive episodes; R41.89 Other symptoms and signs involving cognitive functions and awareness; E87.5 Hyperkalemia; G47.00 Insomnia, unspecified; R47.1 Dysarthria and anarthria; M62.81 Muscle weakness (generalized); I10 Essential (primary) hypertension; R60.0 Localized edema; R47.01 Aphasia; E78.5 Hyperlipidemia, unspecified; R42 Dizziness and giddiness ==